=== PATIENT | male | born 1950 | race Caucasian/White ===

== ENCOUNTER 2020-02-27 10:08 | Inpatient (IN) | payer MEDICARE, OTHER ==
[2020-02-27] MEDS ORDERED: NALOXONE 0.4 MG/ML 1 ML VIAL IV PRN (10:37)
--- NOTE | 2020-02-27 10:37 | ED ---
General Adult HPI - General Chief complaint: Shortness of Breath Stated complaint: SOB, +Covid Time Seen by Provider: 02/27/20 10:09 Source: patient, RN/MD (Discussed with transferring physician), EMS, RN notes reviewed Mode of arrival: EMS Limitations: no limitations - History of Present Illness Initial comments: Patient is a pleasant 69-year-old male presenting to the emergency department as a transfer from [facility]. Patient was diagnosed: Positive. Patient has had cough and difficulty breathing. Oxygen saturation was 80% on nasal c annula and increased to 92% on nonrebreather. Patient did receive 30 mL/kg bolus. Patient was found to be dehydrated and hyponatremic. Patient was on the left that however that has been stopped at this time. Blood cultures and antibiotics were given. Patient states he has had cough fatigue and chills and myalgias as well as fevers. Cough is dry nonproductive. Patient does feel short of breath and does have history of COPD. Patient does have loss of taste and smell. Patient has occasional diarrhea. - Related Data Home Medications Medication Instructions Recorded Confirmed Albuterol Sulfate [Proair Hfa] 2 puff INHALATION RT-Q6H PRN 10/16/14 02/16/15 Arformoterol Tartrate [Brovana] 15 mcg INHALATION RT-BID 10/16/14 02/16/15 Digoxin [Lanoxin] 125 mcg PO DAILY 10/16/14 02/16/15 HYDROcodone/APAP 10-325MG [[place] 1 tab PO Q4HR PRN 10/16/14 02/16/15 10-325] INSULIN LISPRO (humaLOG) [humaLOG] 2 units SQ TID 10/16/14 02/16/15 Insulin Glargine [Lantus] 50 unit SQ HS 10/16/14 02/16/15 Ipratropium-Albuterol Nebulize 3 ml INHALATION RT-TID PRN 10/16/14 02/16/15 [Duoneb 0.5 mg-3 mg/3 ml Soln] Isosorbide Mononitrate ER [Imdur] 60 mg PO DAILY 10/16/14 02/16/15 Lansoprazole [Prevacid] 30 mg PO QAM 10/16/14 02/16/15 Methocarbamol [Robaxin-750] 750 mg PO Q6H PRN 10/16/14 02/16/15 Potassium Chloride ER [K-Dur 20] 20 meq PO DAILY 10/16/14 02/16/15 ALPRAZolam [Xanax] 0.5 mg PO BID PRN 10/17/14 02/16/15 Furosemide [Lasix] 40 mg PO QAM 10/17/14 02/16/15 Nebivolol HCl [Bystolic] 20 mg PO DAILY 10/17/14 02/16/15 Fluticasone Nasal [place] [Flonase 2 sprays EA NOSTRIL BID 02/16/15 02/17/15 Nasal [place]] Omeprazole [PriLOSEC] 20 mg PO HS 02/16/15 02/16/15 busPIRone HCL 30 mg PO BID 02/16/15 02/16/15 fentaNYL 75MCG/HR PATCH [Duragesic 1 patch TRANSDERM Q72H 02/16/15 02/17/15 75MCG/HR] Budesonide (Unknown Dose) 1 ampul INHALATION RT-BID 02/17/15 02/17/15 Previous Rx's Medication Instructions Recorded Levofloxacin [Levaquin] 500 mg PO DAILY #5 tab 02/18/15 SILVER sulfADIAZINE CREAM 1 applic TOPICAL DAILY 10 Days 02/18/15 [Silvadene Cream] gram Temazepam [Restoril] 15 mg PO HS PRN #20 cap 02/18/15 Allergies Allergy/AdvReac Type Severity Reaction Status Date / Time cephalexin monohydrate Allergy Unknown Verified 02/27/20 10:26 [From Keflex] hydroxyzine Allergy Unknown Verified 02/27/20 10:26 iodine Allergy Unknown Verified 02/27/20 10:26 metaproterenol [From Alupent] Allergy Unknown Verified 02/27/20 10:26 Penicillins Allergy Unknown Verified 02/27/20 10:26 sulfamethoxazole Allergy Unknown Verified 02/27/20 10:26 [From Bactrim] trimethoprim [From Bactrim] Allergy Unknown Verified 02/27/20 10:26 Review of Systems ROS Statement: Those systems with pertinent positive or pertinent negative responses have been documented in the HPI. ROS Other: All systems not noted in ROS Statement are negative. Constitutional: Reports: fever, chills Eyes: Denies: eye pain ENT: Denies: ear pain Respiratory: Reports: cough, dyspnea Cardiovascular: Denies: chest pain Endocrine: Reports: fatigue Gastrointestinal: Denies: abdominal pain Genitourinary: Denies: dysuria Musculoskeletal: Denies: back pain Skin: Denies: rash Neurological: Denies: weakness Past Medical History Past Medical History: Asthma, Coronary Artery Disease (CAD), Heart Failure, COPD, Diabetes Mellitus, Deep Vein Thrombosis (DVT), Hyperlipidemia, Hypertension, Myocardial Infarction (DE), Pneumonia, Pulmonary Embolus (PE) Additional Past Medical History / Comment(s): pvc; short term memory loss; insomnia Last Myocardial Infarction Date:: 1988 History of Any Multi-Drug Resistant Organisms: None Reported Past Surgical History: Adenoidectomy, Appendectomy, Cholecystectomy, Coronary Bypass/CABG, Heart Catheterization With Stent, Tonsillectomy Additional Past Surgical History / Comment(s): cabg 2007 Past Anesthesia/Blood Transfusion Reactions: No Reported Reaction Date of Last Stent Placement:: 2008 Past Psychological History: No Psychological Hx Reported Smoking Status: Never smoker Past Alcohol Use History: None Reported Past Drug Use History: None Reported - Past Family History Mother Additional Family Medical History / Comment(s): of mi at age 63. Father Family Medical History: Asthma, Congestive Heart Failure (CHF), COPD General Exam Limitations: no limitations General appearance: alert, in no apparent distress Head exam: Present: normocephalic Eye exam: Present: normal appearance Neck exam: Present: normal inspection Respiratory exam: Present: rhonchi Cardiovascular Exam: Present: regular rate, normal rhythm GI/Abdominal exam: Present: soft. Absent: tenderness Extremities exam: Present: normal inspection. Absent: pedal edema, calf tenderness Neurological exam: Present: alert Psychiatric exam: Present: normal affect, normal mood Skin exam: Present: normal color Course Vital Signs 02/27/20 02/27/20 10:13 10:24 Temperature 97.5 F L Pulse Rate 86 Respiratory 23 24 Rate Blood Pressure 110/76 O2 Sat by Pulse 90 L Oximetry - Reevaluation(s) Reevaluation #1: 02/27/20 10:45 Case was discussed with Dr. Flores. EKG Findings - EKG Comments: EKG Findings:: Sinus rhythm and 94. First 3 AV block SC of 208. QRS 140. QT 452. QTC 565. Left axis. Right bundle branch block. Inferior Q waves. Nonspecific ST-T. Medical Decision Making - Medical Decision Making Patient's O2 sat remains 92% on nonrebreather. Blood pressure has remained systolic 110 3 now Patient is aware of plan. Case was discussed with Dr. Parisi, who will admit covering for Dr. carlos Flores has been paged for consult Disposition Clinical Impression: COVID-19, Dehydration Disposition: ADMITTED IP TO THIS HOSP Condition: Serious Is patient prescribed a controlled substance at d/c from ED?: No Referrals: Fredy Loomis MD [Primary Care Provider] - 1-2 days Decision Time: 10:37
[2020-02-27] MEDS ORDERED: ENOXAPARIN 30 MG/0.3 ML SYRINGE SQ SCH (10:45)
[2020-02-27] MEDS: SODIUM CHLORIDE 0.9% 1,000 ML IV SCH (10:59)
[2020-02-27] MEDS ORDERED: LEVOFLOXACIN 750MG-D5W PMX 750 MG in DEXTROSE/WATER 1 150ML.BAG IVPB SCH (11:00)
[2020-02-27] MEDS: ZINC SULFATE 220 MG CAP PO SCH (11:54)
[2020-02-27] MEDS: ASCORBIC ACID 500 MG TAB PO SCH ×2 (11:54→21:28)
[2020-02-27] MEDS: CHOLECALCIFEROL 1,000 UNIT TAB PO SCH (11:55)
[2020-02-27 13:38] LABS: Anisocytosis Slight; Basophils # (A) 0.1 k/uL (0-0.2); Basophils % (A) 1 %; Eosinophils # (A) 0.1 k/uL (0-0.7); Eosinophils % (A) 1 %; HCT 35.3 % (39.0-53.0); Lymphocytes # (A) 0.6 k/uL (1.0-4.8); Lymphocytes % (A) 6 %; MCV 88.4 fL (80.0-100.0); Mean Platelet Volume 9.1; Monocytes # (A) 0.2 k/uL (0-1.0); Monocytes % (A) 2 %; Neutrophils # (A) 8.9 k/uL (1.3-7.7); Neutrophils % (A) 91 %; Platelet Count 101 k/uL (150-450); RDW 17.1 % (11.5-15.5); WBC 9.8 k/uL (3.8-10.6)
[2020-02-27] MEDS: HYDROcodone/APAP 10-325MG 1 EACH TAB PO PRN (13:42)
[2020-02-27] MEDS: GABAPENTIN 400 MG CAP PO SCH ×2 (13:42→21:27)
--- NOTE | 2020-02-27 14:05 | XR ---
EXAMINATION TYPE: XR chest 2V DATE OF EXAM: 02/27/2020 COMPARISON: Chest x-ray February 16, 2015. HISTORY: Cough, covid pneumonia suspected. TECHNIQUE: Frontal and lateral views of the chest are obtained. FINDINGS: The osseous structures remain intact. Overlying sternal wires and mediastinal clips redemo nstrated. Cardiac silhouette size stable and upper limits of normal. Low lung volumes and elevated ri ght hemidiaphragm redemonstrated. New diffuse left lung air space opacity with relative sparing of th e smaller volume right lung. IMPRESSION: New diffuse left lung acute edema and/or infiltrates.
[2020-02-27 14:26] LABS: C Reactive Protein 321.8 mg/L (<10.0)
[2020-02-27] MEDS ORDERED: NITROGLYCERIN SL TABS 0.4 MG TAB SUBLINGUAL PRN (15:00)
[2020-02-27] MEDS ORDERED: MAGNESIUM HYDROXIDE 2,400 MG/10 ML CUP PO PRN (15:00)
[2020-02-27] MEDS ORDERED: bisacodyL 5 MG TABLET.DR PO PRN (15:00)
--- NOTE | 2020-02-27 15:56 | CT ---
EXAMINATION TYPE: CT chest wo con DATE OF EXAM: 02/27/2020 COMPARISON: CT August 14, 2009. Chest x-ray earlier today. HISTORY: Shortness of breath. Cough. Covid Pneumonia suspected. CT DLP: 562.9 mGycm. Automated Exposure Control for Dose Reduction was Utilized. TECHNIQUE: CT scan of the thorax is performed without IV contrast. FINDINGS: LUNGS: Low lung volumes with elevated right hemidiaphragm redemonstrated. Diffuse groundglass opaciti es bilaterally greater on the left first right-sided correlate with same day x-ray. Trace bilateral p leural effusions noted. No pneumothorax bilaterally. MEDIASTINUM: Post-CABG changes with mediastinal clips and sternal wires. Lack of IV contrast is noted to limit evaluation for mediastinal and especially hilar adenopathy. There are no definitive greater than 1 cm mediastinal lymph nodes. No cardiomegaly or pericardial effusion is seen. OTHER: Liver redemonstrated low dense consistent with diffuse fatty infiltration. Surgical change to the lumbar spine noted on localizer. IMPRESSION: Findings correlate with same day x-ray and consistent with covid 19 infection.
--- NOTE | 2020-02-27 16:05 | HP ---
HISTORY AND PHYSICAL DATE OF SERVICE: 02/27/2020 CHIEF COMPLAINT: Shortness of breath and hypoxia. HISTORY OF PRESENT ILLNESS: This is a 69-year-old gentleman with a past medical history of multiple medical problems including asthma, CAD, CHF, COPD, diabetes type 2, DVT, hypertension, hypertension, myocardial function, pulmonary embolism, being followed by Dr. Fredy Way in the outpatient setting was resident in [facility]. The patient was having cough, sputum and also shortness of breath. Patient went to [facility] and patient was transferred to [facility] for further evaluation and treatment. The patient is COVID positive, the pulse ox is 80%, increased to 90% on non- rebreather. The patient is complaining of severe dry mouth at this time. The patient also had some IV fluids. There is no history of any rigors. No history of headache, loss of consciousness, seizures at this time. PAST MEDICAL HISTORY: Asthma, CHF, COPD, diabetes mellitus, DVT, hypertension, hypertension, myocardial infarction. MEDICATIONS: Prior home medications are: 1. Lasix 30 mg daily. 2. Zanaflex. 3. Glucophage. 4. Zestril. 5. Guaifenesin. 6. Buspirone. 7. Calculus. 8. Bisacodyl. 9. Zinc. 10.Vitamin B. 11.Sukhdev-24. 12.Flomax. 13.Senna. 14.Ranexa q.i.d. 15.Paxil. 16.Prilosec. 17.Nitrostat. 18.Multivitamins. 19.Singulair. 20.Lopressor. 21.Magnesium oxide. 22.Milk of magnesia. 23.Loratadine. 24.Imdur. 25.DuoNeb. 26.Levemir. 27.Neurontin. 28.Ellipta. 29.Flonase. 30.Vitamin D3. 31.Lipitor. 32.Pulmicort. 33.Vitamin C. 34.Zyloprim. 35.ProAir. 36.Tylenol. .. 37.Xanax. ALLERGIES: KEFLEX, HYDROXYZINE, IODINE, and PENICILLIN, BACTRIM. FAMILY HISTORY: History of asthma, CHF, COPD in the family. SOCIAL HISTORY: No history of smoking. No history of alcohol. REVIEW OF SYSTEMS: ENT: Diminished hearing, diminished vision. CARDIOVASCULAR: As mentioned earlier. RESPIRATION: As mentioned earlier. GI: No nausea. : No dysuria. NERVOUS SYSTEM: No numbness or weakness. ALLERGY/IMMUNOLOGY: No history of asthma or hayfever. MUSCULOSKELETAL: As mentioned earlier. HEMATOLOGY: No history of anemia. ENDOCRINE: As mentioned earlier. CONSTITUTIONAL: As mentioned earlier. DERMATOLOGY: Negative. PSYCHIATRY: As mentioned earlier. PHYSICAL EXAMINATION: Alert and oriented x3. Pulse 87, blood pressure 120/77, respiration 20, temperatuve is 97.2, pulse ox 92% on 10 L. HEENT: Conjunctivae normal. NECK: No jugular venous distension. CARDIOVASCULAR: S1, S2, muffled. RESPIRATORY SYSTEM: Breath sounds diminished at the bases, bilateral scattered rhonchi, no crackles. Expiratory wheezing also present. ABDOMEN: Soft, nontender. No mass palpable. LEGS: No edema, no swelling. NERVOUS SYSTEM: Higher functions as mentioned earlier. Moves all limbs. No focal motor or sensory lymph node enlargement. SKIN: No ulcers, rashes. JOINTS: No active deforming arthropathy. LABS: At this time show WBC 9.2, hemoglobin is 12, platelets 101. Other labs are noted. LDH is 764. CRP is 321.8. ASSESSMENT: 1. Acute COVID-19 infection as well as bilateral pneumonia with acute hypoxic respiratory failure and possible respiratory failure, present on admission. 2. Rule out congestive heart failure. 3. Elevated inflammatory markers of COVID including LDH and CRP. 4. Anemia. 5. Thrombocytopenia. 6. History of asthma. 7. History of coronary artery disease. 8. History of CHF, ejection fraction unknown. 9. History of chronic obstructive pulmonary disease. 10.Diabetes mellitus type 2. 11.History of deep vein thrombosis. 12.Hyperlipidemia. 13.Hypertension. 14.History of myocardial infarction. 15.History of pneumonia. 16.History of pulmonary embolism. 17.Previous history of short-term memory loss. 18.History of insomnia. 19.History of cholecystectomy. 20.History of CAD, CABG, stent. 21.History of tonsillectomy. 22.Obesity with body mass 30.8. RECOMMENDATION: In this 69-year-old gentleman who presented with multiple complex medical issues, will monitor the patient closely, continue with the current management. Will treat with bronchodilators. Will check a BNP. Monitor fluid/electrolyte balance closely and Lovenox. I would also recommend Infectious Disease evaluation and possible Remdesivir, also. Continue with nonbreather mask at this time. Pulmonary consultation per Dr. Zuleta. Prognosis guarded because of multiple complex medical issues. Further recommendations to follow. A copy of this will be forwarded to Dr. Way who is the primary physician. Will continue the rest of the conservative treatment of COVID-19 as well. Prognosis guarded. Further recommendations to follow. MMODL / IJN: [id number] / [email or web address]
[2020-02-27] MEDS: RANOLAZINE 500 MG TAB.ER.12H PO SCH (16:52)
[2020-02-27] MEDS ORDERED: REMDESIVIR 200 MG in SODIUM CHLORIDE 0.9% 250 ML IVPB ONE (17:00)
[2020-02-27] MEDS ORDERED: BUDESONIDE 0.5 MG/2 ML NEBU INHALATION SCH (17:00)
[2020-02-27] MEDS: allopurinoL 300 MG TAB PO SCH (18:29)
[2020-02-27] MEDS: busPIRone HCl 10 MG TAB PO SCH (18:29)
[2020-02-27] MEDS: ALBUTEROL HFA INHALER INHALATION PRN (20:15)
[2020-02-27] MEDS ORDERED: NON FORMULARY DRUG (Omeprazole [Prilosec] 20 MG Capsule.Dr) PO SCH (21:00)
[2020-02-27] MEDS ORDERED: IPRATROPIUM-ALBUTEROL 3 ML NEB INHALATION SCH (21:00)
[2020-02-27] MEDS: ATORVASTATIN 40 MG TAB PO SCH (21:27)
[2020-02-27] MEDS: ENOXAPARIN 40 MG/0.4 ML SYRINGE SQ SCH (21:27)
[2020-02-27 21:28] LABS: Glucose,Whole Blood 248 mg/dL (75-99)
[2020-02-27] MEDS: PARoxetine 10 MG TAB PO SCH (21:28)
[2020-02-27] MEDS: CLOPIDOGREL 75 MG TAB PO SCH (21:28)
[2020-02-27] MEDS: MAGNESIUM OXIDE 400 MG TAB PO SCH (21:28)
[2020-02-27] MEDS: SENNOSIDES-DOCUSATE SODIUM 1 EACH TAB PO SCH (21:28)
[2020-02-27] MEDS: INSULIN DETEMIR (LEVEMIR) 100 UNIT/ML SYR SQ SCH (21:28)
--- NOTE | 2020-02-27 21:58 | CONS ---
CONSULTATION PULMONARY/CRITICAL CARE CONSULTATION: DATE OF SERVICE: 02/27/2020 REASON FOR CONSULTATION: Shortness of breath and COVID-19 pneumonia. The patient was seen in the emergency room. This is a 69-year-old gentleman who apparently sees a doctor or nurse practitioner up in the [place] area. The patient was apparently diagnosed with COVID infection and transferred down from [facility]. The patient's complaints included cough and difficulty breathing. Apparently his saturations were only 80% on nasal cannula. The patient was placed on a non-rebreather. The patient also was hypotensive and received fluid boluses, and at one point he also was on some norepinephrine, but that has been weaned off. Currently the patient feels weak. He feels short of breath. He has chest congestion. He is coughing. He likely had some fever and chills as well. He also had muscle aches and joint aches. He has not been feeling well for a number of days. Currently the patient is on saline at 130 mL/hour. At home the patient uses oxygen at 3 L. The patient is a candidate for remdesivir. The patient is currently on a non- rebreather. It also appears that his chest x-ray and CT scan are consistent with COVID-19 pneumonitis, and in addition it appears that he has right diaphragm weakness or paralysis. HOME MEDICATIONS: His home medications are reviewed. He is on ProAir, Brovana, digoxin, [place], insulin, DuoNeb, Imdur, Prevacid, Robaxin, K-Dur, Xanax, Lasix, Bystolic, Flonase nasal spray, Prilosec, fentanyl patch, Pulmicort, Levaquin, silver sulfadiazine cream and Restoril. ALLERGIES: ALLERGIES include KEFLEX, HYDROXYZINE, IODINE, ALUPENT, PENICILLIN, SULFAMETHOXAZOLE and TRIMETHOPRIM. MEDICAL HISTORY: Medical history is reviewed. He apparently has a history of asthma. He sees my partner Dr. Zamudio for that. He also has a history of CAD, CHF, diabetes, DVT, hyperlipidemia, hypertension, myocardial infarction, pneumonia and pulmonary embolism. In addition, he has a history of short-term memory loss and insomnia. SURGICAL HISTORY: Surgical history includes adenoidectomy, appendectomy, cholecystectomy, bypass grafting in 2007, heart catheterization with stent, and tonsillectomy. SOCIAL HISTORY: Positive for lifelong nontobacco use, alcohol use or illicit drug use. Has not used any those products or drugs. FAMILY HISTORY: Positive for mother who at age 63 from an MD and father who has a history of asthma, heart failure and COPD. REVIEW OF SYSTEMS: CONSTITUTIONAL: Fever, chills, muscle aches, joint aches. NEUROLOGIC: Negative. HEENT: Negative. CARDIOVASCULAR: Negative. PULMONARY: Shortness of breath, chest congestion, cough, chest tightness without phlegm production. GI: Negative. : Negative. RHEUMATOLOGIC: Negative. IMMUNOLOGIC: Negative. ENDOCRINOLOGIC: Negative. DERMATOLOGIC: Negative. PHYSICAL EXAMINATION: VITAL SIGNS: Currently temperature is 98, heart rate 93, respiratory rate 22, blood pressure 121/60, mean 80. Saturations are 91% to 94% on a non-rebreather. GENERAL APPEARANCE: He appears mildly tachypneic. No conversational dyspnea or audible wheezing. No use of accessory muscles. HEENT: Examination is grossly unremarkable. Mask in place. NECK: Supple. Full range of motion. No adenopathy. Neck veins are flat. CARDIOVASCULAR: Examination reveals regular rhythm and rate. S1, S2 normal. Heart sounds are distant. LUNGS: Lung examination reveals diminished breath sounds throughout. There are coarse bilateral rhonchi. No wheezes or crackles. Breath sounds are equal but diminished. ABDOMEN: Obese. Bowel sounds are heard. EXTREMITIES: Intact. No cyanosis, clubbing or edema. SKIN: Without rash. NEUROLOGIC: Neurologic examination is brief but nonfocal. LABS/IMAGING: D-dimer is 0.28. LDH 764. C-reactive protein 321.8. White count 9.8, hemoglobin 12, hematocrit 35.3. Platelet count is 101,000. Microbiology is negative. Chest x-ray shows diffuse infiltrates, primarily in the left lung. CT scan shows small bilateral ground-glass opacities which seem to affect both lungs equally. In addition, he does have an elevated right hemidiaphragm. CURRENT MEDICATIONS: Current medications are reviewed. He is on Tylenol, albuterol inhaler, zyloprim, Xanax, vitamin C, aspirin, Lipitor, Dulcolax, Symbicort, BuSpar, D3, Plavix, Decadron, Lovenox, Flonase nasal spray, fenofibrate, Lasix, gabapentin, Robitussin syrup, [place], insulin, Levaquin, Zestril, loratadine, milk of magnesia, Mag-Ox, metoprolol, Singulair, multiple vitamins, Narcan, nitroglycerin tablets, Protonix, potassium, remdesivir, Senna, saline at 130 mL/hour, Flomax, theophylline, Spiriva, Zanaflex and zinc. ASSESSMENT: 1. COVID-19 pneumonitis/pneumonia, with moderate to severe hypoxemic respiratory failure. 2. History of chronic bronchial asthma, a bit more active at this time. 3. Coronary artery disease, status post bypass grafting in 2007. 4. Congestive heart failure. 5. Diabetes mellitus. 6. Deep venous thrombosis. 7. Hyperlipidemia. 8. Hypertension. 9. Myocardial infarction. 10.History of pneumonia. 11.History of pulmonary embolism. PLAN: The patient is on appropriate medications. Will continue to follow. Inflammatory markers will be ordered every couple of days. A repeat chest x-ray down the road. No additional recommendations are made. Hopefully the patient continues to respond to therapy. MMODL / IJN: [id number] /
[2020-02-28] MEDS: THEOPHYLLINE 24 HOUR 200 MG CAP.ER.24H PO SCH ×3 (00:03→21:51)
[2020-02-28] MEDS: SODIUM CHLORIDE 0.9% 1,000 ML IV SCH ×3 (00:05→09:35)
[2020-02-28] MEDS: ALPRAZolam 0.25 MG TAB PO PRN ×2 (02:50→09:31)
[2020-02-28 07:52] LABS: Glucose,Whole Blood 138 mg/dL (75-99)
[2020-02-28] MEDS: ALBUTEROL HFA INHALER INHALATION PRN ×4 (08:01→19:38)
[2020-02-28] MEDS: SYMBICORT 80-4.5 MCG INHALER INHALATION SCH ×2 (08:01→19:38)
[2020-02-28] MEDS: TIOTROPIUM 18 MCG/PUFF INHALER INHALATION SCH (08:16)
[2020-02-28] MEDS ORDERED: NON FORMULARY DRUG (Vitamin B Complex [Vitamin B Complex] 1 EACH Capsule) PO SCH (09:00)
[2020-02-28] MEDS ORDERED: DEXAMETHASONE SOD PHOSPHATE 10 MG/ML 1 ML VIAL IV SCH (09:00)
[2020-02-28] MEDS: allopurinoL 300 MG TAB PO SCH ×2 (09:30→17:12)
[2020-02-28] MEDS: CHOLECALCIFEROL 1,000 UNIT TAB PO SCH (09:30)
[2020-02-28] MEDS: METOPROLOL TARTRATE 25 MG TAB PO SCH (09:30)
[2020-02-28] MEDS: LORATADINE 10 MG TAB PO SCH (09:30)
[2020-02-28] MEDS: ASPIRIN 81 MG PO SCH (09:31)
[2020-02-28] MEDS: GABAPENTIN 400 MG CAP PO SCH ×3 (09:31→21:52)
[2020-02-28] MEDS: FENOFIBRATE 160 MG TAB PO SCH (09:31)
[2020-02-28] MEDS: ISOSORBIDE MONONITRATE ER 30 MG TAB.ER.24H PO SCH (09:31)
[2020-02-28] MEDS: MAGNESIUM OXIDE 400 MG TAB PO SCH ×2 (09:31→21:52)
[2020-02-28] MEDS: busPIRone HCl 10 MG TAB PO SCH ×2 (09:31→17:13)
[2020-02-28] MEDS: ASCORBIC ACID 500 MG TAB PO SCH ×2 (09:31→21:52)
[2020-02-28] MEDS: TAMSULOSIN 0.4 MG CAP.ER.24H PO SCH (09:31)
[2020-02-28] MEDS: RANOLAZINE 500 MG TAB.ER.12H PO SCH ×2 (09:31→17:12)
[2020-02-28] MEDS: tiZANidine 4 MG TAB PO SCH (09:31)
[2020-02-28] MEDS: ZINC SULFATE 220 MG CAP PO SCH (09:31)
[2020-02-28] MEDS: MULTIVITAMINS, THERA 1 EACH TAB PO SCH (09:31)
[2020-02-28] MEDS: lisinopriL 5 MG TAB PO SCH (09:32)
[2020-02-28] MEDS: MONTELUKAST 10 MG TAB PO SCH (09:32)
[2020-02-28] MEDS: POTASSIUM CHLORIDE ER 10 MEQ TAB.ER.PRT PO SCH (09:32)
[2020-02-28] MEDS: PANTOPRAZOLE 40 MG/10 ML VIAL IV SCH (09:32)
[2020-02-28] MEDS: ENOXAPARIN 40 MG/0.4 ML SYRINGE SQ SCH ×2 (09:33→21:52)
[2020-02-28] MEDS: INSULIN DETEMIR (LEVEMIR) 100 UNIT/ML SYR SQ SCH ×2 (09:33→21:53)
[2020-02-28] MEDS: FLUTICASONE 50MCG/SPRAY NASAL 16GM EA NOSTRIL SCH (09:33)
[2020-02-28] MEDS: FUROSEMIDE 10 MG TAB PO SCH (09:34)
[2020-02-28] MEDS: HYDROcodone/APAP 10-325MG 1 EACH TAB PO PRN ×2 (09:59→21:51)
[2020-02-28 11:09] LABS: Albumin 3.9 g/dL (3.5-5.0); Calcium 9.1 mg/dL (8.4-10.2); Total Bilirubin 0.8 mg/dL (0.2-1.3); Total Protein 7.1 g/dL (6.3-8.2)
[2020-02-28 11:11] LABS: Anisocytosis Slight; Basophils % (A) 0 %; Eosinophils % (A) 0 %; HCT 42.9 % (39.0-53.0); HGB 14.1 gm/dL (13.0-17.5); Lymphocytes % (A) 7 %; MCH 29.1 pg (25.0-35.0); MCHC 32.8 g/dL (31.0-37.0); MCV 88.6 fL (80.0-100.0); Mean Platelet Volume 8.6; Monocytes # (A) 0.6 k/uL (0-1.0); Monocytes % (A) 4 %; Neutrophils # (A) 12.9 k/uL (1.3-7.7); Neutrophils % (A) 88 %; RBC 4.84 m/uL (4.30-5.90); RDW 17.1 % (11.5-15.5); WBC 14.6 k/uL (3.8-10.6)
[2020-02-28 11:21] LABS: Potassium 4.5 mmol/L (3.5-5.1)
[2020-02-28 11:32] LABS: Platelet Count 153 k/uL (150-450)
[2020-02-28 11:52] LABS: Glucose,Whole Blood 282 mg/dL (75-99)
[2020-02-28] MEDS: methylPREDNISolone SOD SUCCI 125 MG/2 ML VIAL IV SCH ×3 (12:13→23:27)
[2020-02-28] MEDS: INSULIN ASPART (NovoLOG) 100 UNIT/ML VIAL SQ SCH ×3 (12:13→21:53)
--- NOTE | 2020-02-28 12:41 | CDI ---
Documentation Clarification Form Date: 02/28/2020 12:29:01 PM From: Radha Kim CCS, CCDS Admit Date: 02/27/2020 10:39:00 AM Patient Name: Colton Haque Visit Number: [id number] Discharge Date: ATTENTION: The Clinical Documentation Specialists (CDI) and [facility] Coding Staff appreciate your assistance in clarifying documentation. Please respond to the clarification below the line at the bottom and electronically sign. The CDI & [facility] Coding staff will review the response and follow-up if needed. Please note: Queries are made part of the Legal Health Record. If you have any questions, please contact the author of this message via ITS. Dr. Jasmine Parisi: This patient was transferred from [facility] with COVID 19 and pneumonia. Also in acute hypoxic respiratory failure. Per the 02/26 Pulmonary Consult: "The patient's complaints included cough and difficulty breathing. Apparently his saturations were only 80% on nasal cannula. The patient was placed on a non-rebreather. The patient also was hypotensive and received fluid boluses, and at one point he also was on some norepinephrine, but that has been weaned off." History/Risk Factors: CAD status post Stent & CABG post AL, CHF nos, Hypertension, DM II, DVT, Hyperlipidemia, Previous Pneumonia & PE. Clinical Indicators: Presented to the ED via EMS on 02/26 from [facility] with + COVID. SOB, dehydrated, hyponatremic, cough, fatigue, chills, myalgias, fever, diarrhea, loss of taste & smell. 02/26 VS: T 97.5*, P 86, R 24 (SOB), BP 110/76, PO 90 15% nrb. 02/27 VS: T 97.9, P 105^, R 28 (SOB, cough), BP 166/99, PO 90 15% nrb. LAB 02/26: WBC 9.8, RBC 4.00*, Hgb 12.0*, Hct 35.3*, Pl Ct 101*, Neut 8.9^, Lymph 0.6*, Lactate Dehydrogenase 764^, CRP 321.9^. LAB 02/27: WBC 14.6^, Neut 12.9^ RAD: 02/26 CXR: New diffuse left lung acute edema and/or infiltrates. 02/26 CT Chest: Consistent with COVID 19 infection. Treatment: po Orazinc, IV Levaquin, Vit D3 & Vit C, INH Ventolin, IV Remdesivir, Lovenox sq. In your professional opinion, please clarify if these findings signify one of the following conditions, whether the condition is POA, and cause, if known: Sepsis o Severe Sepsis Other, please specify Unable to determine Present on Admission: Yes or No Link or clarify if there is associated (due to/with): Organ failure (Last Revision: June 2017) none MTDD
--- NOTE | 2020-02-28 14:27 | P.PN ---
Subjective Progress Note Date: 02/28/20 Principal diagnosis: CoVID [id number] 69-year-old white male patient who came into the hospital on 02/27/2020 as a transfer from an [facility] after being diagnosed with covid19 infection, and having symptoms of shortness of breath, worsening hypoxemia. Patient has chronic hypoxic respiratory failure the patient normally wears 3 L of oxygen on a regular basis, however his saturations were only 80% on the nasal cannula, and subsequent patient was placed on non-rebreather. In addition patient was hypotensive, and received fluid boluses and was on a brief norepinephrine support, he is currently off the norepinephrine. He's been feeling pretty weak, has been having fever and chills, muscle aches and joint aches. Has not been feeling well for a number of days. His chest x-ray CT chest consistent with COVID 19 pneumonitis in addition with what appears to be a right hemidiaphragm weakness or paralysis. Patient was started on Remdesivir, high-dose IV steroids will be started today, he remains on aIRVO, currently at 50 L per minute, and FiO2 of 90% sat is 99%, hemodynamically has been stable, his been afebrile. Objective - Vital Signs Vital signs: Vital Signs Temp 98.7 F 02/28/20 12:10 Pulse 80 02/28/20 12:40 Resp 22 02/28/20 12:40 BP 92/54 02/28/20 14:08 Pulse Ox 99 02/28/20 12:40 Intake & Output 02/27/20 02/28/20 02/28/20 18:59 06:59 18:59 Intake Total 660 Output Total 4000 4800 1200 Balance -4000 -4800 -540 Weight 89.358 kg 92.5 kg Intake: Oral 660 Output: Urine 4000 4800 1200 Other: Voiding Method Indwelling Catheter Indwelling Catheter # Bowel Movements 2 - Exam GENERAL EXAM: Alert, pleasant, 61-year-old white male, on Airvo at 50 L, and FiO2 of 90%, with a pulse ox of 99% comfortable in no apparent distress. HEAD: Normocephalic/atraumatic. EYES: Normal reaction of pupils, equal size. Conjunctiva pink, sclera white. NOSE: Clear with pink turbinates. THROAT: No erythema or exudates. NECK: No masses, no JVD, no thyroid enlargement, no adenopathy. CHEST: No chest wall deformity. Symmetrical expansion. LUNGS: Equal air entry with no crackles, wheeze, rhonchi or dullness. CVS: Regular rate and rhythm, normal S1 and S2, no gallops, no murmurs, no rubs ABDOMEN: Soft, nontender. No hepatosplenomegaly, normal bowel sounds, no guarding or rigidity. EXTREMITIES: No clubbing, no edema, no cyanosis, 2+ pulses and upper and lower extremities. MUSCULOSKELETAL: Muscle strength and tone normal. SPINE: No scoliosis or deformity SKIN: No rashes CENTRAL NERVOUS SYSTEM: Alert and oriented -3. No focal deficits, tone is normal in all 4 extremities. PSYCHIATRIC: Alert and oriented -3. Appropriate affect. Intact judgment and insight. - Labs CBC & Chem 7: 02/28/20 09:56 02/28/20 09:56 Labs: Abnormal Lab Results - Last 24 Hours (Table) 02/27/20 02/27/20 02/28/20 Range/Units 13:26 21:27 07:46 WBC (3.8-10.6) k/uL RDW (11.5-15.5) % Neutrophils # (1.3-7.7) k/uL Carbon Dioxide (22-30) mmol/L BUN (9-20) mg/dL Glucose (74-99) mg/dL POC Glucose (mg/dL) 248 H 138 H (75-99) mg/dL AST (17-59) U/L C-Reactive Protein 321.8 H (<10.0) mg/L 02/28/20 02/28/20 02/28/20 Range/Units 09:56 09:56 11:51 WBC 14.6 H (3.8-10.6) k/uL RDW 17.1 H (11.5-15.5) % Neutrophils # 12.9 H (1.3-7.7) k/uL Carbon Dioxide 21 L (22-30) mmol/L BUN 34 H (9-20) mg/dL Glucose 132 H (74-99) mg/dL POC Glucose (mg/dL) 282 H (75-99) mg/dL AST 79 H (17-59) U/L C-Reactive Protein (<10.0) mg/L Assessment and Plan Plan: Assessment: #1. Acute coronary 19 pneumonitis/pneumonia with the moderate to severe hypoxemic respiratory failure, started on Remdesivir on 02/27/2020 #2. Chronic hypoxic respiratory failure related to history of COPD #3. Chronic CHF with diastolic dysfunction, moderate mitral regurgitation, and mild tricuspid regurgitation no evidence of pulmonary hypertension #4. Diabetes mellitus type 2 #5. Coronary artery disease, previous stenting and bypass surgery #6. History of deep vein thrombosis he #7. History of hyperlipidemia #8. Previous history of myocardial infarction #9. Previous history of pneumonia #10. History of chronic bronchial asthma, unspecified #11. 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 Code status is DO N OT INTUBATE DO NOT RESUSCITATE, we'll continue supportive treatment I performed a history & physical examination of the patient and discussed their management with my nurse practitioner, Maribeth Latif. I reviewed the nurse practitioner's note and agree with the documented findings and plan of care. Lung sounds are positive for diminished breath sounds throughout the lung aguirre. The findings and the impression was discussed with the patient. I attest to the documentation by the nurse practitioner. Time with Patient: Less than 30
--- NOTE | 2020-02-28 16:50 | PN ---
PROGRESS NOTE DATE OF SERVICE: 02/28/2020 This 69-year-old gentleman who was admitted with shortness of breath and hypoxia also had acute COVID-19 infection. The patient was also seen by Pulmonary. The patient has been started on remdesivir; this is day [address] Zuleta is following the patient closely. Infectious Disease also has been consulted. Past medical history reviewed. REVIEW OF SYSTEMS: CARDIOVASCULAR SYSTEM: As mentioned earlier. RESPIRATORY SYSTEM: As mentioned earlier. GI: As mentioned earlier. : No dysuria or retention. NERVOUS SYSTEM: No numbness, weakness. CURRENT MEDICATIONS: Reviewed. They include Tylenol, [place], Ventolin, zyloprim, Xanax, vitamin C, aspirin, Lipitor. Medication doses are reviewed. PHYSICAL EXAMINATION: Patient is alert and oriented x3. Pulse 80, blood pressure 103/60, respiration 22, temperature normal, pulse ox 99% on 50% FiO2. HEENT: Conjunctivae normal. NECK: No jugular venous distention. CARDIOVASCULAR SYSTEM: S1, S2 muffled. RESPIRATORY SYSTEM: Breath sounds diminished at the bases. Bilateral scattered rhonchi and crackles. ABDOMEN: Soft. NERVOUS SYSTEM: No focal deficit. LABS: WBC 14.6, sodium 138, potassium 4.5. ASSESSMENT: 1. Acute COVID-19 infection as well as bilateral pneumonia with possible acute hypoxic respiratory failure, present on admission. 2. On remdesivir. 3. Congestive heart failure ruled out. 4. Elevated inflammatory markers for COVID, including LDH and CRP. 5. Anemia. 6. Thrombocytopenia. 7. History of asthma. 8. History of coronary artery disease. 9. Congestive heart failure; ejection fraction unknown. 10.History of chronic obstructive pulmonary disease. 11.Diabetes mellitus, type 2. 12.History of deep venous thrombosis. 13.Hyperlipidemia. 14.Hypertension. 15.History of myocardial infarction. 16.History of pneumonia. 17.History of pulmonary embolism. 18.History of short-term memory loss. 19.History of insomnia. 20.History of cholecystectomy. 21.History of coronary artery disease, coronary artery bypass grafting, stents. 22.History of tonsillectomy. 23.Obesity with body mass index of 30.8. 24.NO CODE, NO CPR, NO VENT. RECOMMENDATIONS AND DISCUSSION: I recommend to continue current medications, continue with the monitoring, symptomatic treatment. Continue with the bronchodilators. Continue the steroids. Continue the remdesivir. Monitor the inflammatory markers. Monitor labs closely. Follow with Pulmonary. The chest x-ray was reviewed personally by me and showed bilateral extensive pneumonitic process, interstitial pneumonia, possibly classical COVID-19. Prognosis guarded. Further recommendations to follow. MMODL / PHILIPN: [id number] /
[2020-02-28 16:58] LABS: Glucose,Whole Blood 236 mg/dL (75-99)
[2020-02-28] MEDS: REMDESIVIR 100 MG in SODIUM CHLORIDE 0.9% 250 ML IVPB SCH (17:12)
[2020-02-28 21:09] LABS: Glucose,Whole Blood 248 mg/dL (75-99)
[2020-02-28] MEDS: SENNOSIDES-DOCUSATE SODIUM 1 EACH TAB PO SCH (21:51)
[2020-02-28] MEDS: ATORVASTATIN 40 MG TAB PO SCH (21:51)
[2020-02-28] MEDS: CLOPIDOGREL 75 MG TAB PO SCH (21:52)
--- NOTE | 2020-02-28 22:39 | P.CONS ---
History of Present Illness - Reason for Consult Consult date: 02/28/20 Covid 19 pneumonia Requesting physician: Jasmine Parisi - Chief Complaint Shortness of breath and cough x few days - History of Present Illness Patient is a 69-year-old male presenting to the ER at [facility] yesterday morning as a transfer from [facility] with the patient presented with cough difficulty in breathing and this patient symptom has been going on for about a week patient was noticed to be hypoxic with O2 sats of 80% and the patient also noticed to have a positive Covid test at that facility patient complaining of shortness of breath even at rest he also have a cough which is moderate intensity not bringing up any sputum, patient did have some lower rib cage pleuritic chest pain, some nausea but no vomiting no URI symptoms no abdominal pain no diarrhea with the symptom the patient was evaluated by the ER physician on arrival to the ER the patient has been afebrile patient has been on the high flow nasal cannula oxygen patient did have a white count 14.6 with a left shift BUN of 34 creatinine is 1.14 AST elevated 79 D- dimer was normal patient did have a chest x-ray new diffuse left lung acute edema or infiltrate CT of the chest did shows diffuse groundglass opacity bilaterally greater on the left patient was admitted to the hospital patient has been started on Lovenox Solu-Medrol remdesivir infectious was consulted nothing for further management patient admitted slight improvement comparing to presentation to the hospital Review of Systems Positive point has been mentioned in HPI rest of the systems are negative Past Medical History Past Medical History: Asthma, Coronary Artery Disease (CAD), Heart Failure, COPD, Diabetes Mellitus, Deep Vein Thrombosis (DVT), Hyperlipidemia, Hypertension, Myocardial Infarction ([place]), Pneumonia, Pulmonary Embolus (PE) Additional Past Medical History / Comment(s): pvc; short term memory loss; insomnia Last Myocardial Infarction Date:: 1988 History of Any Multi-Drug Resistant Organisms: None Reported Past Surgical History: Adenoidectomy, Appendectomy, Cholecystectomy, Coronary Bypass/CABG, Heart Catheterization With Stent, Tonsillectomy Additional Past Surgical History / Comment(s): cabg 2007 Past Anesthesia/Blood Transfusion Reactions: No Reported Reaction Date of Last Stent Placement:: 2008 Past Psychological History: No Psychological Hx Reported Smoking Status: Never smoker Past Alcohol Use History: None Reported Past Drug Use History: None Reported - Past Family History Mother Additional Family Medical History / Comment(s): of mi at age 63. Father Family Medical History: Asthma, Congestive Heart Failure (CHF), COPD Medications and Allergies Home Medications Medication Instructions Recorded Confirmed Type Albuterol Sulfate [Proair Hfa] 2 puff INHALATION RT-Q6H PRN 10/16/14 02/27/20 History HYDROcodone/APAP 10-325MG [[place] 1 tab PO QID@05,13,18,22 10/16/14 02/27/20 History 10-325] INSULIN LISPRO (humaLOG) [humaLOG] 10 units SQ TID@0700,1100,1600 10/16/14 02/27/20 History Ipratropium-Albuterol Nebulize 3 ml INHALATION BID@0900,2100 10/16/14 02/27/20 History [Duoneb 0.5 mg-3 mg/3 ml Soln] Fluticasone Nasal Iva [Flonase 1 sprays EA NOSTRIL DAILY@0900 02/16/15 02/27/20 History Nasal Iva] Omeprazole [PriLOSEC] 20 mg PO BID@0600,2100 02/16/15 02/27/20 History busPIRone HCL 30 mg PO BID@0900,1700 02/16/15 02/27/20 History ALPRAZolam [Xanax] 0.25 mg PO TID@0600,1300,209902/27/20 02/27/20 History Acetaminophen Tab [Tylenol Tab] 500 mg PO DAILY PRN 02/27/20 02/27/20 History Allopurinol [Zyloprim] 300 mg PO BID@0900,1700 02/27/20 02/27/20 History Ascorbic Acid [Vitamin C] 500 mg PO DAILY@1300 02/27/20 02/27/20 History Aspirin 81 mg PO DAILY@0900 02/27/20 02/27/20 History Atorvastatin [Lipitor] 40 mg PO HS@209902/27/20 02/27/20 History Budesonide [Pulmicort] 0.5 mg INHALATION RT-BID@0600,1700 02/27/20 02/27/20 History Cholecalciferol [Vitamin D3 (25 5,000 unit PO DAILY@129902/27/20 02/27/20 History Mcg = 1000 Iu)] Clopidogrel [Plavix] 75 mg PO HS@209902/27/20 02/27/20 History Fluticasone/Vilanterol [Breo 1 puff INHALATION RT-DAILY@89902/27/20 02/27/20 History Ellipta 100-25 Mcg Inhaler] Furosemide [Lasix] 30 mg PO DAILY@0902/27/20 02/27/20 History Gabapentin [Neurontin] 400 mg PO TID@0900,1300,209902/27/20 02/27/20 History Gemfibrozil [Lopid] 600 mg PO BID@0900,1700 02/27/20 02/27/20 History Insulin Detemir (Levemir) [Levemir] 35 unit SQ DAILY@0702/27/20 02/27/20 History Insulin Detemir (Levemir) [Levemir] 38 units SQ HS@209902/27/20 02/27/20 History Isosorbide Mononitrate ER [Imdur] 30 mg PO DAILY@89902/27/20 02/27/20 History Loratadine 10 mg PO DAILY@0902/27/20 02/27/20 History Magnesium Hydroxide [Milk of 2,400 mg PO Q48H PRN 02/27/20 02/27/20 History Magnesia] Magnesium Oxide [Mag-Ox] 400 mg PO BID@0900,209902/27/20 02/27/20 History Metoprolol Tartrate [Lopressor] 25 mg PO DAILY@89902/27/20 02/27/20 History Montelukast [Singulair] 10 mg PO DAILY@89902/27/20 02/27/20 History Multivitamins, Thera [Multivitamin 1 tab PO DAILY@89902/27/20 02/27/20 History (formulary)] Nitroglycerin Sl Tabs [Nitrostat] 0.4 mg SUBLINGUAL Q5M PRN 02/27/20 02/27/20 History PARoxetine HCL [Paxil] 30 mg PO HS@209902/27/20 02/27/20 History Potassium Chloride ER [K-Dur 10] 10 meq PO DAILY@0902/27/20 02/27/20 History Ranolazine [Ranexa] 500 mg PO BID@00,1700 02/27/20 02/27/20 History Sennosides/Docusate Sodium [Senna 1 cap PO HS@2100 02/27/20 02/27/20 History Plus 8.6-50 mg Softgel] Tamsulosin [Flomax] 0.4 mg PO DAILY@0900 02/27/20 02/27/20 History Theophylline 24 Hour [Sukhdev-24] 200 mg PO BID@0900,2100 02/27/20 02/27/20 History Vitamin B Complex 1 cap PO DAILY@0900 02/27/20 02/27/20 History Zinc 50 mg PO DAILY@1300 02/27/20 02/27/20 History bisacodyL [Bisacodyl] 10 mg RECTAL DAILY PRN 02/27/20 02/27/20 History bisacodyL [Dulcolax] 10 mg PO Q48H PRN 02/27/20 02/27/20 History guaiFENesin [guaiFENesin Oral 200 mg PO Q4H PRN 02/27/20 02/27/20 History Solution] lisinopriL [Zestril] 5 mg PO DAILY@0900 02/27/20 02/27/20 History metFORMIN HCL [Glucophage] 500 mg PO BID@0900,1700 02/27/20 02/27/20 History tiZANidine [Zanaflex] 2 mg PO DAILY@0900 02/27/20 02/27/20 History Allergies Allergy/AdvReac Type Severity Reaction Status Date / Time cephalexin monohydrate Allergy Unknown Verified 02/27/20 10:26 [From Keflex] hydroxyzine Allergy Unknown Verified 02/27/20 10:26 iodine Allergy Unknown Verified 02/27/20 10:26 metaproterenol [From Alupent] Allergy Unknown Verified 02/27/20 10:26 Penicillins Allergy Unknown Verified 02/27/20 10:26 sulfamethoxazole Allergy Unknown Verified 02/27/20 10:26 [From Bactrim] trimethoprim [From Bactrim] Allergy Unknown Verified 02/27/20 10:26 Physical Exam Vitals: Vital Signs Temp Pulse Pulse Resp BP BP Pulse Ox 02/28/20 16:00 97.7 F 77 23 107/59 98 02/28/20 14:58 78 22 98/57 94 L 02/28/20 14:08 92/54 02/28/20 12:40 80 22 103/60 99 02/28/20 12:31 92/56 02/28/20 12:30 93/54 02/28/20 12:17 89/53 02/28/20 12:15 70/48 02/28/20 12:11 76/49 02/28/20 12:10 98.7 F 80 22 79/51 93 L 02/28/20 08:00 98.1 F 102 H 22 141/83 94 L 02/28/20 03:21 98.2 F 103 H 22 150/65 96 02/28/20 00:00 97.9 F 110 H 26 H 168/74 95 02/27/20 23:14 105 H 28 H 166/99 90 L Intake and Output 02/28/20 02/28/20 02/28/20 06:59 14:59 22:59 Intake Total 780 360 Output Total 3000 1200 1500 Balance -3000 420 -1140 Intake: Oral 780 360 Output: Urine 3000 1200 1500 Other: Voiding Method Indwelling Catheter Indwelling Catheter # Bowel Movements 2 3 Weight 92.5 kg GENERAL DESCRIPTION: Elderly male lying in bed, no distress. No tachypnea or accessory muscle of respiration use. HEENT: Shows Pallor , no scleral icterus. Oral mucous membrane is dry. NECK: Trachea central, no thyromegaly. LUNGS: Unlabored breathing. Decreased breath in the bases. No wheeze or crackle. HEART: S1, S2, regular rate and rhythm. ABDOMEN: Soft, no tenderness , guarding or rigidity EXTREMITIES: No edema of feet. SKIN: No rash, no masses palpable. NEUROLOGICAL: The patient is awake, alert, oriented x3, mood and affect normal. Results CBC & Chem 7: 02/28/20 09:56 02/28/20 09:56 Labs: Abnormal Lab Results - Last 24 Hours (Table) 02/27/20 02/28/20 02/28/20 Range/Units 21:27 07:46 09:56 WBC (3.8-10.6) k/uL RDW (11.5-15.5) % Neutrophils # (1.3-7.7) k/uL Carbon Dioxide 21 L (22-30) mmol/L BUN 34 H (9-20) mg/dL Glucose 132 H (74-99) mg/dL POC Glucose (mg/dL) 248 H 138 H (75-99) mg/dL AST 79 H (17-59) U/L 02/28/20 02/28/20 02/28/20 Range/Units 09:56 11:51 16:57 WBC 14.6 H (3.8-10.6) k/uL RDW 17.1 H (11.5-15.5) % Neutrophils # 12.9 H (1.3-7.7) k/uL Carbon Dioxide (22-30) mmol/L BUN (9-20) mg/dL Glucose (74-99) mg/dL POC Glucose (mg/dL) 282 H 236 H (75-99) mg/dL AST (17-59) U/L Assessment and Plan Assessment: -patient presented to hospital with increasing shortness of breath and cough in this patient did have hypoxemia with evidence of diffuse infiltrate on the chest x-ray as well as CT likely secondary acute COVID-19 had pneumonia (1) COVID-19 Current Visit: Yes Status: Acute Code(s): U07.1 - COVID-19 SNOMED Code(s): 372393775 Plan: 1-patient will be continued on remdesivir 200 mg day 1 followed by 100 milligrams daily x4 more doses 6-[id number]-Uokqdj 60 mg every 6 hours along with Lovenox and zinc sulfate 3-droplet isolation and respiratory support 4-we will also obtain urine for Legionella antigen sputum culture and a procalcitonin level We will follow on clinical condition and cultures to further adjust medication if needed Thank you for this consultation we will follow the patient along with you Time with Patient: Greater than 30
[2020-02-28] MEDS: PARoxetine 10 MG TAB PO SCH (23:27)
[2020-02-29] MEDS: ALBUTEROL HFA INHALER INHALATION PRN ×3 (03:52→20:21)
[2020-02-29 06:48] LABS: Glucose,Whole Blood 146 mg/dL (75-99)
[2020-02-29] MEDS: INSULIN ASPART (NovoLOG) 100 UNIT/ML VIAL SQ SCH ×4 (07:10→20:37)
[2020-02-29] MEDS: INSULIN DETEMIR (LEVEMIR) 100 UNIT/ML SYR SQ SCH ×2 (07:10→20:37)
[2020-02-29] MEDS: methylPREDNISolone SOD SUCCI 125 MG/2 ML VIAL IV SCH ×4 (07:11→22:57)
[2020-02-29 08:04] LABS: Anisocytosis Slight; Basophils % (A) 0 %; Eosinophils % (A) 0 %; HCT 39.1 % (39.0-53.0); HGB 12.9 gm/dL (13.0-17.5); Lymphocytes # (A) 0.9 k/uL (1.0-4.8); Lymphocytes % (A) 10 %; MCH 29.4 pg (25.0-35.0); MCHC 33.1 g/dL (31.0-37.0); MCV 88.7 fL (80.0-100.0); Mean Platelet Volume 8.4; Monocytes # (A) 0.2 k/uL (0-1.0); Monocytes % (A) 3 %; Neutrophils # (A) 7.6 k/uL (1.3-7.7); Neutrophils % (A) 86 %; Platelet Count 156 k/uL (150-450); RBC 4.41 m/uL (4.30-5.90); RDW 17.2 % (11.5-15.5); WBC 8.8 k/uL (3.8-10.6)
[2020-02-29 08:18] LABS: Calcium 8.7 mg/dL (8.4-10.2); Potassium 4.2 mmol/L (3.5-5.1)
[2020-02-29] MEDS: ASCORBIC ACID 500 MG TAB PO SCH ×2 (08:34→20:35)
[2020-02-29] MEDS: CHOLECALCIFEROL 1,000 UNIT TAB PO SCH (08:34)
[2020-02-29] MEDS: allopurinoL 300 MG TAB PO SCH ×2 (08:34→17:29)
[2020-02-29] MEDS: FENOFIBRATE 160 MG TAB PO SCH (08:35)
[2020-02-29] MEDS: ZINC SULFATE 220 MG CAP PO SCH (08:35)
[2020-02-29] MEDS: MULTIVITAMINS, THERA 1 EACH TAB PO SCH (08:35)
[2020-02-29] MEDS: ISOSORBIDE MONONITRATE ER 30 MG TAB.ER.24H PO SCH (08:35)
[2020-02-29] MEDS: MAGNESIUM OXIDE 400 MG TAB PO SCH ×2 (08:35→20:35)
[2020-02-29] MEDS: MONTELUKAST 10 MG TAB PO SCH (08:35)
[2020-02-29] MEDS: LORATADINE 10 MG TAB PO SCH (08:35)
[2020-02-29] MEDS: lisinopriL 5 MG TAB PO SCH (08:35)
[2020-02-29] MEDS: POTASSIUM CHLORIDE ER 10 MEQ TAB.ER.PRT PO SCH (08:35)
[2020-02-29] MEDS: busPIRone HCl 10 MG TAB PO SCH ×2 (08:35→17:29)
[2020-02-29] MEDS: GABAPENTIN 400 MG CAP PO SCH ×3 (08:35→22:57)
[2020-02-29] MEDS: RANOLAZINE 500 MG TAB.ER.12H PO SCH ×2 (08:35→17:29)
[2020-02-29] MEDS: METOPROLOL TARTRATE 25 MG TAB PO SCH (08:35)
[2020-02-29] MEDS: tiZANidine 4 MG TAB PO SCH (08:36)
[2020-02-29] MEDS: ASPIRIN 81 MG PO SCH (08:36)
[2020-02-29] MEDS: PANTOPRAZOLE 40 MG/10 ML VIAL IV SCH (08:40)
[2020-02-29] MEDS: ENOXAPARIN 40 MG/0.4 ML SYRINGE SQ SCH ×2 (08:40→20:37)
[2020-02-29] MEDS: FUROSEMIDE 10 MG TAB PO SCH (08:40)
[2020-02-29] MEDS: TAMSULOSIN 0.4 MG CAP.ER.24H PO SCH (08:41)
[2020-02-29] MEDS: THEOPHYLLINE 24 HOUR 200 MG CAP.ER.24H PO SCH ×2 (08:41→20:35)
[2020-02-29] MEDS: TIOTROPIUM 18 MCG/PUFF INHALER INHALATION SCH (09:10)
[2020-02-29] MEDS: SYMBICORT 80-4.5 MCG INHALER INHALATION SCH ×2 (09:10→20:19)
[2020-02-29] MEDS: FLUTICASONE 50MCG/SPRAY NASAL 16GM EA NOSTRIL SCH (10:45)
[2020-02-29 11:56] LABS: Glucose,Whole Blood 235 mg/dL (75-99)
[2020-02-29] MEDS: HYDROcodone/APAP 10-325MG 1 EACH TAB PO PRN ×2 (13:31→22:57)
--- NOTE | 2020-02-29 14:26 | PN ---
PROGRESS NOTE This is a 69-year-old gentleman that we saw initially in the emergency room. We saw him on February 26. He came down from [place]. He was diagnosis as having COVID-19 pneumonia. The patient currently is complaining of worsening shortness of breath. He has cough. He has chest congestion. It hurts when he takes a deep breath. The patient initially was hypotensive. He received fluids and norepinephrine. That had been weaned off in the emergency department. Currently, he is a NO CODE patient. The patient was started on Remdesivir, high-dose steroids, and the usual medications including vitamin C, vitamin D3, and zinc. PHYSICAL EXAMINATION: VITAL SIGNS: Current vital signs include temperature 97.6, heart rate 72. Respiratory rate 22, blood pressure 122/64, mean 83 and saturations in the low 90s on AIRVO at 50 L/minute and FiO2 of 90%. GENERAL: He appears mildly tachypneic and dyspneic. Seems uncomfortable. HEENT: Examination is grossly unremarkable. AIRVO cannula noted. NECK: Supple. Full range of motion. No adenopathy. Neck veins are flat. CARDIOVASCULAR: Examination reveals regular rhythm and rate. Heart rate 72. S1, S2 normal. No S3, S4, or murmur. LUNGS: Reveal coarse rhonchi. Breath sounds are diminished. There are some crackles at the bases. No wheezes. ABDOMEN: Soft, but obese. EXTREMITIES are intact. No edema. SKIN is without rash. NEUROLOGIC: Examination is nonfocal. LABS: Reviewed. White count 8.8, hemoglobin 12.9, hematocrit 39.1, platelet count 156,000. Sodium 136, potassium 4.2. Chloride 104. CO2 24. Anion gap is 8. BUN and creatinine were 39 and 1.02. Microbiology is currently pending or negative. No recent chest x-rays. CURRENT MEDICATIONS: Reviewed. He is on Tylenol, albuterol inhaler, Zyloprim, Xanax, vitamin C, aspirin, Lipitor, Dulcolax, Symbicort, BuSpar, vitamin D3, Plavix, Lovenox, Lofibra, Flonase nasal spray, Lasix, gabapentin, Robitussin syrup, [place] insulin, Imdur, lisinopril, loratadine, milk of magnesia, Mag-Ox, Solu-Medrol, Lopressor, Singulair, Theragran, vitamins, Narcan, Nitro-Bid, Nitrostat, Protonix Paxil, K-Dur, Ranexa, Remdesivir, senna, Flomax, Restoril, theophylline, Spiriva, Zanaflex and zinc. ASSESSMENT: 1. Acute hypoxemic respiratory failure secondary to COVID-19 pneumonitis/pneumonia, currently on Remdesivir and AIRVO. 2. Chronic hypoxemic respiratory failure. 3. History of underlying chronic obstructive pulmonary disease. 4. Chronic congestive heart failure with diastolic dysfunction, and valvular heart disease in the form of moderate mitral regurgitation, and mild tricuspid regurgitation without evidence of pulmonary hypertension. 5. Type 2 diabetes mellitus. 6. Coronary artery disease, previous stenting and bypass surgery. 7. History of deep venous thrombosis. 8. History of hyperlipidemia. 9. Prior history of myocardial infarction. 10.History of pneumonia. 11.History of chronic bronchial asthma. 12.Elevated right hemidiaphragm, rule out diaphragm paralysis or weakness. PLAN: The patient continues on appropriate medications. He appears maybe not to be getting better. We will continue to watch him closely. He is on AIRVO at 90% FiO2. We will continue to follow. The patient does not want to be intubated or mechanically ventilated. He made that very clear. We will continue to do everything short of that. MMODL / IJN: [id number] /
[2020-02-29] MEDS: REMDESIVIR 100 MG in SODIUM CHLORIDE 0.9% 250 ML IVPB SCH (15:48)
[2020-02-29 16:52] LABS: Glucose,Whole Blood 212 mg/dL (75-99)
[2020-02-29] MEDS ORDERED: MENTHOL (NICE) LOZENGE MUCOUS MEM PRN (16:59)
[2020-02-29] MEDS: NYSTATIN 100,000 UNIT/ML SUSP 500,000 UNIT/5 ML CUP PO SCH ×2 (17:40→22:57)
[2020-02-29] MEDS: guaiFENesin SYRUP 100MG/5ML 200 MG/10 ML CUP PO PRN (17:44)
[2020-02-29 20:13] LABS: Glucose,Whole Blood 208 mg/dL (75-99)
[2020-02-29] MEDS: ATORVASTATIN 40 MG TAB PO SCH (20:35)
[2020-02-29] MEDS: SENNOSIDES-DOCUSATE SODIUM 1 EACH TAB PO SCH (20:35)
[2020-02-29] MEDS: CLOPIDOGREL 75 MG TAB PO SCH (20:36)
[2020-02-29] MEDS: PARoxetine 10 MG TAB PO SCH (20:36)
[2020-02-29] MEDS: ACETAMINOPHEN TAB 500 MG TAB PO PRN (20:37)
[2020-02-29] MEDS: TEMAZEPAM 15 MG CAP PO PRN (22:57)
--- NOTE | 2020-02-29 23:11 | PN ---
PROGRESS NOTE DATE OF SERVICE: 02/29/2020 REASON FOR FOLLOWUP: Acute COVID-19 pneumonia. INTERVAL HISTORY: Patient is currently afebrile, has been complaining of more shortness of breath and requiring high-flow nasal cannula oxygen. The patient denies any chest pain. Did have a cough. Not bringing up any sputum. No abdominal pain or diarrhea. PHYSICAL EXAMINATION: Blood pressure 120/55, pulse of 69, temperature 98.3. She is 93% on 15 L nasal cannula. She is 93% on 50% FIO2. Currently description is an elderly male lying in bed in no distress. Respiratory system: Unlabored breathing. Coarse breath sounds bilaterally. No wheeze. Heart S1, S2. Regular rate. ABDOMEN: Soft, no tenderness. LABS: Hemoglobin is 12.1, white count 8.9, BUN of 39, creatinine 1.02. DIAGNOSTIC IMPRESSION AND PLAN: Patient with acute COVID-19 pneumonia in this patient currently requiring high-flow nasal cannula oxygen for respiratory support is covered with Lovenox, Solu-Medrol and [place]; to continue and monitor clinical course closely. MMODL / IJN: [id number] /
[2020-03-01] MEDS: guaiFENesin SYRUP 100MG/5ML 200 MG/10 ML CUP PO PRN (04:17)
[2020-03-01 06:14] LABS: Glucose,Whole Blood 86 mg/dL (75-99)
[2020-03-01] MEDS: INSULIN ASPART (NovoLOG) 100 UNIT/ML VIAL SQ SCH ×4 (06:25→21:40)
[2020-03-01] MEDS: methylPREDNISolone SOD SUCCI 125 MG/2 ML VIAL IV SCH ×4 (07:05→23:05)
[2020-03-01] MEDS: HYDROcodone/APAP 10-325MG 1 EACH TAB PO PRN ×3 (07:06→21:41)
[2020-03-01] MEDS: INSULIN DETEMIR (LEVEMIR) 100 UNIT/ML SYR SQ SCH ×2 (07:06→21:40)
[2020-03-01] MEDS: ASPIRIN 81 MG PO SCH (08:46)
[2020-03-01] MEDS: ENOXAPARIN 40 MG/0.4 ML SYRINGE SQ SCH ×2 (08:46→21:40)
[2020-03-01] MEDS: TAMSULOSIN 0.4 MG CAP.ER.24H PO SCH (08:46)
[2020-03-01] MEDS: ZINC SULFATE 220 MG CAP PO SCH (08:46)
[2020-03-01] MEDS: CHOLECALCIFEROL 1,000 UNIT TAB PO SCH (08:46)
[2020-03-01] MEDS: allopurinoL 300 MG TAB PO SCH ×2 (08:46→16:57)
[2020-03-01] MEDS: MULTIVITAMINS, THERA 1 EACH TAB PO SCH (08:47)
[2020-03-01] MEDS: ISOSORBIDE MONONITRATE ER 30 MG TAB.ER.24H PO SCH (08:47)
[2020-03-01] MEDS: GABAPENTIN 400 MG CAP PO SCH ×3 (08:47→21:39)
[2020-03-01] MEDS: ASCORBIC ACID 500 MG TAB PO SCH ×2 (08:47→21:41)
[2020-03-01] MEDS: PANTOPRAZOLE 40 MG/10 ML VIAL IV SCH (08:47)
[2020-03-01] MEDS: TIOTROPIUM 18 MCG/PUFF INHALER INHALATION SCH (08:47)
[2020-03-01] MEDS: MAGNESIUM OXIDE 400 MG TAB PO SCH ×2 (08:47→21:41)
[2020-03-01] MEDS: MONTELUKAST 10 MG TAB PO SCH (08:47)
[2020-03-01] MEDS: METOPROLOL TARTRATE 25 MG TAB PO SCH (08:47)
[2020-03-01] MEDS: SYMBICORT 80-4.5 MCG INHALER INHALATION SCH ×2 (08:47→20:45)
[2020-03-01] MEDS: ALBUTEROL HFA INHALER INHALATION PRN ×2 (08:47→20:45)
[2020-03-01] MEDS: LORATADINE 10 MG TAB PO SCH (08:47)
[2020-03-01] MEDS: POTASSIUM CHLORIDE ER 10 MEQ TAB.ER.PRT PO SCH (08:47)
[2020-03-01] MEDS: RANOLAZINE 500 MG TAB.ER.12H PO SCH ×2 (08:47→16:57)
[2020-03-01] MEDS: tiZANidine 4 MG TAB PO SCH (08:48)
[2020-03-01] MEDS: FENOFIBRATE 160 MG TAB PO SCH (08:48)
[2020-03-01] MEDS: THEOPHYLLINE 24 HOUR 200 MG CAP.ER.24H PO SCH ×2 (08:48→21:41)
[2020-03-01] MEDS: NYSTATIN 100,000 UNIT/ML SUSP 500,000 UNIT/5 ML CUP PO SCH ×4 (08:49→21:40)
[2020-03-01] MEDS: FUROSEMIDE 10 MG TAB PO SCH (08:49)
[2020-03-01] MEDS: lisinopriL 5 MG TAB PO SCH (08:50)
[2020-03-01] MEDS: FLUTICASONE 50MCG/SPRAY NASAL 16GM EA NOSTRIL SCH (09:00)
[2020-03-01] MEDS: busPIRone HCl 10 MG TAB PO SCH ×2 (09:05→16:57)
[2020-03-01 09:07] LABS: Anisocytosis Slight; Basophils % (A) 0 %; Eosinophils % (A) 0 %; HCT 41.8 % (39.0-53.0); HGB 13.2 gm/dL (13.0-17.5); Lymphocytes # (A) 0.9 k/uL (1.0-4.8); Lymphocytes % (A) 9 %; MCH 28.2 pg (25.0-35.0); MCHC 31.6 g/dL (31.0-37.0); MCV 89.2 fL (80.0-100.0); Mean Platelet Volume 8.3; Monocytes # (A) 0.4 k/uL (0-1.0); Monocytes % (A) 4 %; Neutrophils # (A) 9.1 k/uL (1.3-7.7); Neutrophils % (A) 87 %; Platelet Count 172 k/uL (150-450); RBC 4.69 m/uL (4.30-5.90); RDW 17.6 % (11.5-15.5); WBC 10.5 k/uL (3.8-10.6)
--- NOTE | 2020-03-01 09:23 | XR ---
EXAMINATION TYPE: XR chest 1V portable DATE OF EXAM: 03/01/2020 Comparison: 02/27/2020 Clinical History: 69-year-old male COVID Findings: Very limited exam due to the low lung volumes. Marked elevation right hemidiaphragm mid chest level. Median sternotomy wires. Left CVC no longer visualized. Patient is rotated towards the right further limiting assessment. Heart size overall is normal. Mild diffuse interstitial groundglass is suggested . Impression: Similar diffuse bilateral groundglass infiltrate. Marked asymmetric elevation right hemidiaphragm. Co nsider underlying hemidiaphragmatic paralysis.
[2020-03-01 09:30] LABS: African American GFR (CKD) >90 (>60 ml/min/1.73 sqM); Anion Gap 8 mmol/L; Blood Urea Nitrogen 38 mg/dL (9-20); Calcium 8.9 mg/dL (8.4-10.2); Carbon Dioxide 24 mmol/L (22-30); Chloride 105 mmol/L (98-107); Glucose 121 mg/dL (74-99); Non-African American GFR(CKD) 87 (>60 ml/min/1.73 sqM); Potassium 4.2 mmol/L (3.5-5.1); Sodium 137 mmol/L (137-145)
[2020-03-01 11:35] LABS: Glucose,Whole Blood 177 mg/dL (75-99)
[2020-03-01] MEDS: ACETAMINOPHEN TAB 500 MG TAB PO PRN (11:37)
[2020-03-01] MEDS: ALPRAZolam 0.25 MG TAB PO PRN (11:37)
--- NOTE | 2020-03-01 15:42 | PN ---
PROGRESS NOTE PULMONARY/CRITICAL CARE PROGRESS NOTE: DATE OF SERVICE: March 01, 2020 69-year-old gentleman that we initially saw in the emergency room. He came in to the hospital on February 26, actually being transferred from [place]. He was diagnosed as having COVID-19 pneumonia. The patient complains of really not feeling much better. Not getting much worse he states. He has got shortness of breath, cough, chest congestion, and pain when he takes a deep breath. He denies any nausea, vomiting or diarrhea. No fever or chills. Initially, he received fluids in the emergency room and also required norepinephrine. Those were weaned off obviously before he came to the floor. The patient is a NO CODE. He was started on Remdesivir, high dose corticosteroids, and usual medications including vitamin C, vitamin D3, and zinc. PHYSICAL EXAMINATION: VITAL SIGNS: Current vital signs are reviewed. Temperature is 98.3. Heart rate 85, respiratory rate 22, blood pressure 122/56 mean 78, saturations are in the low to mid 90s on AIRVO at 50 L/minute and 90% FiO2. GENERAL: Appears mildly tachypneic and dyspneic. AIRVO cannula noted. HEENT: Examination is grossly unremarkable. NECK: Supple. Full range of motion. No adenopathy. Neck veins are flat. CARDIOVASCULAR: Examination reveals regular rhythm and rate. Heart rate 85 beats per minute. S1, S2 normal. Heart sounds are distant. LUNGS: Reveal diffuse coarse rhonchi. Breath sounds are equal. ABDOMEN: Obese. Bowel sounds are heard. EXTREMITIES are intact. No edema. SKIN: Without rash. NEUROLOGIC: Examination is nonfocal. LABS: Reviewed. White count 10.5, hemoglobin 13.2, hematocrit 41.8, platelet count 172,000. Sodium 137, potassium 4.2, chloride 105, CO2 24, anion gap is 8. BUN and creatinine were 38 and 0.9. Microbiology is currently negative. The most recent chest x-ray dated March 01 shows diffuse bilateral ground-glass infiltrates. There is also elevation of the right hemidiaphragm. Chest x-ray certainly no better. CURRENT MEDICATIONS: Reviewed. The patient is on Tylenol, albuterol inhaler, Zyloprim, Xanax, vitamin C, aspirin, Lipitor, Dulcolax, Symbicort, BuSpar, vitamin D3, Plavix, Lofibra, Lovenox, Flonase nasal spray, Lasix, gabapentin, Robitussin, [place], NovoLog insulin, Levemir insulin, Imdur, Zestril, loratadine, milk of magnesia, Mag-Ox, Nice cough drops, Solu- Medrol, metoprolol, Singulair, multivitamins, Narcan, nitroglycerin, Mycostatin oral suspension, Protonix, Paxil, potassium chloride, Ranexa, Remdesivir, Senokot, Flomax, Restoril, theophylline, Tiotropium, Zanaflex and zinc. ASSESSMENT: 1. Acute hypoxemic respiratory failure secondary to COVID-19 pneumonia/pneumonitis, currently on Remdesivir and AIRVO, not much improved. 2. Chronic hypoxemic respiratory failure secondary to underlying chronic obstructive pulmonary disease. 3. Chronic congestive heart failure with diastolic dysfunction and valvular heart disease in the form of moderate mitral regurgitation, mild tricuspid regurgitation, without evidence of pulmonary hypertension. 4. Type 2 diabetes mellitus. 5. Coronary artery disease, with previous stenting and bypass surgery. 6. History of deep vein thrombosis. 7. History of hyperlipidemia. 8. Prior history of myocardial infarction. 9. History of pneumonia. 10.History of chronic bronchial asthma. 11.Elevated right hemidiaphragm. PLAN: The patient is on appropriate medications. I am very concerned because the patient really has not shown much improvement. The patient is 69. He has multiple medical problems as noted above. He is on Remdesivir. Currently on AIRVO at 90%. The patient continues to be quite short of breath. We will continue to follow. Prognosis is guarded. No additional recommendations are made. He is a NO CODE. MMODL / IJN: [id number] /
[2020-03-01] MEDS: REMDESIVIR 100 MG in SODIUM CHLORIDE 0.9% 250 ML IVPB SCH (16:53)
[2020-03-01 17:11] LABS: Glucose,Whole Blood 217 mg/dL (75-99)
[2020-03-01 20:24] LABS: Glucose,Whole Blood 289 mg/dL (75-99)
--- NOTE | 2020-03-01 21:00 | PN ---
PROGRESS NOTE DATE OF SERVICE: 03/01/2020 REASON FOR FOLLOWUP: COVID-19 pneumonia. INTERVAL HISTORY: Patient is currently afebrile. The patient is requiring high-flow nasal cannula oxygen. Denies having any chest pain. Some shortness of breath. Minimal cough. No nausea, vomiting, abdominal pain or diarrhea. PHYSICAL EXAMINATION: Blood pressure 145/69, pulse of 78, temperature 97.9. He is 90% on 15 L high-flow oxygen. General description is an elderly male lying in bed in no distress. Respiratory system: Unlabored breathing with decreased intensity of breath sounds. Heart S1, S2. Regular rate and rhythm. Abdomen soft, no tenderness. LABS: Hemoglobin 13.1, white count 10.5, BUN of 30, creatinine 0.90. DIAGNOSTIC IMPRESSION AND PLAN: Patient with acute COVID-19 pneumonia. Patient is currently on Lovenox, Solu-Medrol, Remdesivir and zinc sulfate along with respiratory support to continue and monitor clinical course closely. MMODL / IJN: [id number] /
[2020-03-01] MEDS ORDERED: INSULIN ASPART (NovoLOG) 100 UNIT/ML VIAL SQ ONE (21:19)
[2020-03-01] MEDS: CLOPIDOGREL 75 MG TAB PO SCH (21:39)
[2020-03-01] MEDS: TEMAZEPAM 15 MG CAP PO PRN (21:39)
[2020-03-01] MEDS: ATORVASTATIN 40 MG TAB PO SCH (21:40)
[2020-03-01] MEDS: SENNOSIDES-DOCUSATE SODIUM 1 EACH TAB PO SCH (21:41)
[2020-03-01] MEDS: PARoxetine 10 MG TAB PO SCH (21:41)
--- NOTE | 2020-03-01 23:55 | P.PN ---
Subjective Progress Note Date: 02/29/20 Patient is a 69-year-old male was admitted to hospital due to shortness of breath and hypoxia and also acute COVID-19 infection. Patient was started on remdesivir. ID and pulmonary is following. Patient was initially hypotensive and was given fluids and also was Levophed which was weaned off in the ER.. 02/29/2020 Patient is currently lying in the bed comfortably. Was started on remdesivir and high-dose steroids. Currently on vitamin supplementation as well. On airvo at 50 L and FiO2 90%. Laboratory data showed WBC 8.8, hemoglobin 12.9 and platelets 156 Sodium 136, potassium 4.1 BUN 39 creatinine 1.02 Procalcitonin level is 0.19 blood sugars in 200s. Current medications reviewed. Objective - Vital Signs Vital signs: Vital Signs Temp 97.1 F L 02/29/20 16:00 Pulse 61 02/29/20 16:00 Resp 20 02/29/20 16:00 BP 105/51 02/29/20 16:00 Pulse Ox 94 L 02/29/20 16:00 Intake & Output 02/28/20 02/29/20 02/29/20 18:59 06:59 18:59 Intake Total 1140 236 Output Total 1950 2350 1000 Balance -810 -2350 -764 Weight 92 kg Intake: Oral 1140 236 Output: Urine 1950 2350 1000 Other: Voiding Method Indwelling Catheter Indwelling Catheter Indwelling Catheter # Bowel Movements 3 - Exam PHYSICAL EXAMINATION: Patient is lying in the bed comfortably, no acute distress, awake alert and oriented.. HEENT: Normocephalic. Neck is supple. Pupils reactive. Nostrils clear. Oral cavity is moist. Ears reveal no drainage. Neck reveals no JVD, carotid bruits, or thyromegaly. CHEST EXAMINATION: Trachea is central. Symmetrical expansion. Diffuse coarse breath sounds. Nonlabored breathing.. CARDIAC: Normal S1, S2 with no gallops. No murmurs ABDOMEN: Soft. Bowel sounds normal. No organomegaly. No abdominal bruits. Extremities: reveal no edema. No clubbing or cyanosis Neurologically awake, alert, oriented x3 with well-coordinated movements. No focal deficits noted Skin: No rash or skin lesions. Psychiatric: Coperative. Nonsuicidal Musculoskeletal: No joint swelling or deformity. Normal range of motion. - Labs CBC & Chem 7: 03/01/20 08:28 03/01/20 08:28 Labs: Abnormal Lab Results - Last 24 Hours (Table) 02/28/20 02/29/20 02/29/20 Range/Units 21:02 06:36 07:20 Hgb 12.9 L (13.0-17.5) gm/dL RDW 17.2 H (11.5-15.5) % Lymphocytes # 0.9 L (1.0-4.8) k/uL Sodium (137-145) mmol/L BUN (9-20) mg/dL Glucose (74-99) mg/dL POC Glucose (mg/dL) 248 H 146 H (75-99) mg/dL Procalcitonin (0.02-0.09) ng/mL 02/29/20 02/29/20 02/29/20 Range/Units 07:20 07:20 11:54 Hgb (13.0-17.5) gm/dL RDW (11.5-15.5) % Lymphocytes # (1.0-4.8) k/uL Sodium 136 L (137-145) mmol/L BUN 39 H (9-20) mg/dL Glucose 132 H (74-99) mg/dL POC Glucose (mg/dL) 235 H (75-99) mg/dL Procalcitonin 0.19 H (0.02-0.09) ng/mL 02/29/20 Range/Units 16:49 Hgb (13.0-17.5) gm/dL RDW (11.5-15.5) % Lymphocytes # (1.0-4.8) k/uL Sodium (137-145) mmol/L BUN (9-20) mg/dL Glucose (74-99) mg/dL POC Glucose (mg/dL) 212 H (75-99) mg/dL Procalcitonin (0.02-0.09) ng/mL Assessment and Plan Assessment: Acute COVID-19 infection with bilateral pneumonia and acute hypoxic respiratory failure present on admission currently being continued on remdesivir. Elevated inflammatory markers secondary to COVID-19 pneumonia Asthma stable History of CAD Chronic CHF ejection fraction unknown at this time COPD Diabetes type 2 History of DVT Hypertension Hyperlipidemia History of [place] History of PE History of short-term memory loss Current CODE STATUS is DNR/DNI Plan: Patient will continue current management and plan and continue with bronchodilators. Currently steroids and monitor inflammatory markers. Continue with remdesivir and follow-up closely. ID and pulmonary is on board. Further recommendations based on clinical course. Prognosis is guarded at this time. Time with Patient: Greater than 30
--- NOTE | 2020-03-02 | P.PN ---
Subjective Progress Note Date: 03/01/20 Principal diagnosis: Acute hypoxic respite failure secondary to COVID-19 pneumonia Patient is a 69-year-old male was admitted to hospital due to shortness of breath and hypoxia and also acute COVID-19 infection. Patient was started on remdesivir. ID and pulmonary is following. Patient was initially hypotensive and was given fluids and also was Levophed which was weaned off in the ER.. 02/29/2020 Patient is currently lying in the bed comfortably. Was started on remdesivir and high-dose steroids. Currently on vitamin supplementation as well. On airvo at 50 L and FiO2 90%. Laboratory data showed WBC 8.8, hemoglobin 12.9 and platelets 156 Sodium 136, potassium 4.1 BUN 39 creatinine 1.02 Procalcitonin level is 0.19 blood sugars in 200s. 03/01/2020 Patient is currently resting in bed comfortably. On high flow oxygen at 15 L and 90% FiO2. Chest x-ray showed similar diffuse bilateral groundglass infiltrate. Marked asymmetric elevation right hemidiaphragm. Consider underlying hemidiaphragmatic paralysis. However as patient is being continued on remdesivir and steroids and vitamin supplementation. Pulmonary and ID is on board. Patient presents Improving slowly compared to yesterday. Current medications reviewed. Objective - Vital Signs Vital signs: Vital Signs Temp 97.9 F 03/01/20 15:01 Pulse 76 03/01/20 15:01 Resp 22 03/01/20 15:01 BP 145/69 03/01/20 15:01 Pulse Ox 90 L 03/01/20 15:01 Intake & Output 02/29/20 03/01/20 03/01/20 18:59 06:59 18:59 Intake Total 1046 120 746 Output Total 1700 1700 1200 Balance -931 -8076 -687 Weight 89.5 kg Intake: IV 160 80 saline KVO 160 80 Intake, IV Titration 250 Amount Remdesivir 100 mg In 250 Sodium Chloride 0.9% 250 ml @ 250 mls/hr IVPB DAILY@1700 [facility] Rx#: [id number] Oral 636 120 666 Output: Urine 1700 1700 1200 Other: Voiding Method Indwelling Catheter Indwelling Catheter Indwelling Catheter - Exam PHYSICAL EXAMINATION: Patient is lying in the bed comfortably, no acute distress, awake alert and oriented.. HEENT: Normocephalic. Neck is supple. Pupils reactive. Nostrils clear. Oral cavity is moist. Ears reveal no drainage. Neck reveals no JVD, carotid bruits, or thyromegaly. CHEST EXAMINATION: Trachea is central. Symmetrical expansion. Diffuse coarse breath sounds. Nonlabored breathing.. CARDIAC: Normal S1, S2 with no gallops. No murmurs ABDOMEN: Soft. Bowel sounds normal. No organomegaly. No abdominal bruits. Extremities: reveal no edema. No clubbing or cyanosis Neurologically awake, alert, oriented x3 with well-coordinated movements. No focal deficits noted Skin: No rash or skin lesions. Psychiatric: Coperative. Nonsuicidal Musculoskeletal: No joint swelling or deformity. Normal range of motion. - Labs CBC & Chem 7: 03/01/20 08:28 03/01/20 08:28 Labs: Abnormal Lab Results - Last 24 Hours (Table) 02/29/20 03/01/20 03/01/20 Range/Units 20:12 08:28 08:28 RDW 17.6 H (11.5-15.5) % Neutrophils # 9.1 H (1.3-7.7) k/uL Lymphocytes # 0.9 L (1.0-4.8) k/uL BUN 38 H (9-20) mg/dL Glucose 121 H (74-99) mg/dL POC Glucose (mg/dL) 208 H (75-99) mg/dL 03/01/20 03/01/20 Range/Units 11:33 16:56 RDW (11.5-15.5) % Neutrophils # (1.3-7.7) k/uL Lymphocytes # (1.0-4.8) k/uL BUN (9-20) mg/dL Glucose (74-99) mg/dL POC Glucose (mg/dL) 177 H 217 H (75-99) mg/dL Assessment and Plan Assessment: Acute COVID-19 infection with bilateral pneumonia and acute hypoxic respiratory failure present on admission currently being continued on remdesivir. Elevated inflammatory markers secondary to COVID-19 pneumonia Asthma stable History of CAD Chronic CHF ejection fraction unknown at this time COPD Diabetes type 2 History of DVT Hypertension Hyperlipidemia History of [place] History of PE History of short-term memory loss Current CODE STATUS is DNR/DNI Plan: Patient will continue current management and plan and continue with bronchodilators. Currently steroids and monitor inflammatory markers. Continue with remdesivir and follow-up closely. ID and pulmonary is on board. Further recommendations based on clinical course. Prognosis is guarded at this time. Time with Patient: Greater than 30
[2020-03-02] MEDS: guaiFENesin SYRUP 100MG/5ML 200 MG/10 ML CUP PO PRN (05:00)
[2020-03-02] MEDS: HYDROcodone/APAP 10-325MG 1 EACH TAB PO PRN ×3 (05:00→17:51)
[2020-03-02] MEDS: methylPREDNISolone SOD SUCCI 125 MG/2 ML VIAL IV SCH (05:01)
[2020-03-02] MEDS: ALBUTEROL HFA INHALER INHALATION PRN ×4 (05:10→21:01)
[2020-03-02 06:21] LABS: Glucose,Whole Blood 203 mg/dL (75-99)
[2020-03-02] MEDS: INSULIN ASPART (NovoLOG) 100 UNIT/ML VIAL SQ SCH ×4 (06:42→21:48)
[2020-03-02] MEDS: INSULIN DETEMIR (LEVEMIR) 100 UNIT/ML SYR SQ SCH ×2 (06:42→21:48)
[2020-03-02] MEDS: SYMBICORT 80-4.5 MCG INHALER INHALATION SCH ×2 (07:07→21:01)
[2020-03-02] MEDS: TIOTROPIUM 18 MCG/PUFF INHALER INHALATION SCH (07:07)
--- NOTE | 2020-03-02 09:10 | P.PN ---
Subjective Progress Note Date: 03/02/20 69 year old male patient who was hospitalized on 02/27/2020 as a transfer from [facility] because of acute pneumonia attributed to coronavirus Covid 19 infection. The patient was complaining of shortness of breath and cough and congestion no nausea or vomiting or diarrhea. No reported fever or chills. The patient initially required fluids and also reports some pressors and she was started on a combination of steroids and Remdesivir. The patient was on high flow 02, Airvo, and the patient subsequently was weaned off and patient is currently on 15 L per minute nasal cannula and the pulses ox is on the order of 90%. The patient is also on Lovenox 40 mg subcu every 12 hours. The patient on Levemir insulin 38 units at bedtime and 35 units in the morning in addition to sinus. Coverage. Home medication. We will order. Chest x-ray from yesterday shows similar. Bilateral ground glass. There is also marked elevation of the right hemidiaphragm, likely due to component of diaphragmatic paralysis.the patient was subsequently placed back on high flow oxygen at 50 L with a FiO2 of 90% to bring up his saturation.he is feeling essentially the same as yesterday. He is still struggling with his breathing. He has a congested cough. Objective - Vital Signs Vital signs: Vital Signs Temp 97.6 F 03/02/20 04:00 Pulse 92 03/02/20 04:00 Resp 22 03/02/20 04:00 BP 163/71 03/02/20 04:00 Pulse Ox 94 L 03/02/20 04:00 Intake & Output 03/01/20 03/02/20 03/02/20 18:59 06:59 18:59 Intake Total 968 540 90 Output Total 1800 1400 Balance -832 -860 90 Weight 85 kg Intake: IV 80 saline KVO 80 Oral 888 540 90 Output: Urine 1800 1400 Other: Voiding Method Indwelling Catheter Indwelling Catheter - Exam GENERAL EXAM: Alert, pleasant, 61-year-old white male, on 50 L/min with a pulse ox of 90% comfortable in no apparent distress. HEAD: Normocephalic/atraumatic. EYES: Normal reaction of pupils, equal size. Conjunctiva pink, sclera white. NOSE: Clear with pink turbinates. THROAT: No erythema or exudates. NECK: No masses, no JVD, no thyroid enlargement, no adenopathy. CHEST: No chest wall deformity. Symmetrical expansion. LUNGS: Equal air entry with no crackles, wheeze, rhonchi or dullness.diminished breath on the right lung bases the patient has chronic right hemidiaphragmatic paralysis. CVS: Regular rate and rhythm, normal S1 and S2, no gallops, no murmurs, no rubs ABDOMEN: Soft, nontender. No hepatosplenomegaly, normal bowel sounds, no guarding or rigidity. EXTREMITIES: No clubbing, no edema, no cyanosis, 2+ pulses and upper and lower extremities. MUSCULOSKELETAL: Muscle strength and tone normal. SPINE: No scoliosis or deformity SKIN: No rashes CENTRAL NERVOUS SYSTEM: Alert and oriented -3. No focal deficits, tone is normal in all 4 extremities. PSYCHIATRIC: Alert and oriented -3. Appropriate affect. Intact judgment and insight. - Labs CBC & Chem 7: 03/01/20 08:28 03/01/20 08:28 Labs: Abnormal Lab Results - Last 24 Hours (Table) 03/01/20 03/01/20 03/01/20 Range/Units 08:28 08:28 11:33 RDW 17.6 H (11.5-15.5) % Neutrophils # 9.1 H (1.3-7.7) k/uL Lymphocytes # 0.9 L (1.0-4.8) k/uL BUN 38 H (9-20) mg/dL Glucose 121 H (74-99) mg/dL POC Glucose (mg/dL) 177 H (75-99) mg/dL 03/01/20 03/01/20 03/02/20 Range/Units 16:56 20:22 06:20 RDW (11.5-15.5) % Neutrophils # (1.3-7.7) k/uL Lymphocytes # (1.0-4.8) k/uL BUN (9-20) mg/dL Glucose (74-99) mg/dL POC Glucose (mg/dL) 217 H 289 H 203 H (75-99) mg/dL Assessment and Plan Plan: #1. Acute COVID 19 pneumonitis/pneumonia with the moderate to severe hypoxemic respiratory failure, started on Remdesivir on 02/27/2020 and on steroidsmild currently on high flow oxygen at 50 L per minute #2. Chronic hypoxic respiratory failure related to history of COPD, maintained on 2.5 L of oxygen outpatient basis and the patient has chronic right hemidiaphragmatic paralysis. #3. Chronic CHF with diastolic dysfunction, moderate mitral regurgitation, and mild tricuspid regurgitation no evidence of pulmonary hypertension #4. Diabetes mellitus type 2 #5. Coronary artery disease, previous stenting and bypass surgery #6. History of deep vein thrombosis #7. History of hyperlipidemia #8. Previous history of myocardial infarction #9. Previous history of pneumonia #10. History of chronic bronchial asthma, unspecified #11. Elevated right hemidiaphragm with possibility of right diaphragmatic paralysis Plan Continue Remdesivir, high-dose IV steroids, continue the vitamins and supp lements, continue anticoagulation form of Lovenox 40 mg subcu every 12 hours, continue to monitor oxygenation pattern, dyspnea pattern, vital signs. Code status is DO NOT INTUBATE DO NOT RESUSCITATE, we'll continue supportive treatment. The patient is currently on O2 at 50 litersand will continue follow- up his progress.ccontinue the Solu-Medrol and put the patient IV Decadron 6 mg per recovery study
[2020-03-02] MEDS: ASCORBIC ACID 500 MG TAB PO SCH ×2 (10:36→21:47)
[2020-03-02] MEDS: allopurinoL 300 MG TAB PO SCH ×2 (10:36→17:50)
[2020-03-02] MEDS: ASPIRIN 81 MG PO SCH (10:36)
[2020-03-02] MEDS: CHOLECALCIFEROL 1,000 UNIT TAB PO SCH (10:37)
[2020-03-02] MEDS: busPIRone HCl 10 MG TAB PO SCH ×2 (10:37→17:50)
[2020-03-02] MEDS: ENOXAPARIN 40 MG/0.4 ML SYRINGE SQ SCH ×2 (10:38→21:48)
[2020-03-02] MEDS: FUROSEMIDE 10 MG TAB PO SCH (10:39)
[2020-03-02] MEDS: FENOFIBRATE 160 MG TAB PO SCH (10:39)
[2020-03-02] MEDS: GABAPENTIN 400 MG CAP PO SCH ×3 (10:40→21:48)
[2020-03-02] MEDS: ISOSORBIDE MONONITRATE ER 30 MG TAB.ER.24H PO SCH (10:41)
[2020-03-02] MEDS: lisinopriL 5 MG TAB PO SCH (10:41)
[2020-03-02] MEDS: MAGNESIUM OXIDE 400 MG TAB PO SCH ×2 (10:42→21:48)
[2020-03-02] MEDS: LORATADINE 10 MG TAB PO SCH (10:42)
[2020-03-02] MEDS: METOPROLOL TARTRATE 25 MG TAB PO SCH (10:42)
[2020-03-02] MEDS: MONTELUKAST 10 MG TAB PO SCH (10:43)
[2020-03-02] MEDS: PANTOPRAZOLE 40 MG/10 ML VIAL IV SCH (10:43)
[2020-03-02] MEDS: MULTIVITAMINS, THERA 1 EACH TAB PO SCH (10:43)
[2020-03-02] MEDS: NYSTATIN 100,000 UNIT/ML SUSP 500,000 UNIT/5 ML CUP PO SCH ×4 (10:43→21:47)
[2020-03-02] MEDS: TAMSULOSIN 0.4 MG CAP.ER.24H PO SCH (10:44)
[2020-03-02] MEDS: POTASSIUM CHLORIDE ER 10 MEQ TAB.ER.PRT PO SCH (10:44)
[2020-03-02] MEDS: RANOLAZINE 500 MG TAB.ER.12H PO SCH ×2 (10:44→17:50)
[2020-03-02] MEDS: tiZANidine 4 MG TAB PO SCH (10:44)
[2020-03-02] MEDS: ZINC SULFATE 220 MG CAP PO SCH (10:46)
[2020-03-02] MEDS: DEXAMETHASONE SOD PHOSPHATE 10 MG/ML 1 ML VIAL IV SCH (10:46)
[2020-03-02] MEDS: THEOPHYLLINE 24 HOUR 200 MG CAP.ER.24H PO SCH ×2 (10:49→21:47)
[2020-03-02] MEDS: FLUTICASONE 50MCG/SPRAY NASAL 16GM EA NOSTRIL SCH (10:49)
[2020-03-02 12:15] LABS: Glucose,Whole Blood 212 mg/dL (75-99)
[2020-03-02] MEDS: ALPRAZolam 0.25 MG TAB PO PRN (14:35)
--- NOTE | 2020-03-02 15:04 | P.PN ---
Subjective Acute hypoxic respite failure secondary to COVID-19 pneumonia Patient is a 69-year-old male was admitted to hospital due to shortness of breath and hypoxia and also acute COVID-19 infection. Patient was started on remdesivir. ID and pulmonary is following. Patient was initially hypotensive and was given fluids and also was Levophed which was weaned off in the ER.. 02/29/2020 Patient is currently lying in the bed comfortably. Was started on remdesivir and high-dose steroids. Currently on vitamin supplementation as well. On airvo at 50 L and FiO2 90%. Laboratory data showed WBC 8.8, hemoglobin 12.9 and platelets 156 Sodium 136, potassium 4.1 BUN 39 creatinine 1.02 Procalcitonin level is 0.19 blood sugars in 200s. 03/01/2020 Patient is currently resting in bed comfortably. On high flow oxygen at 15 L and 90% FiO2. Chest x-ray showed similar diffuse bilateral groundglass infiltrate. Marked asymmetric elevation right hemidiaphragm. Consider underlying hemidiaphragmatic paralysis. However as patient is being continued on remdesivir and steroids and vitamin supplementation. Pulmonary and ID is on board. Patient presents Im proving slowly compared to yesterday. 03/02/2020 Patient still remains on the high amount of oxygen still remains on remdesivir patient is presently on 50 L of oxygen via airvo Constitutional: Denied any fatigue denied any fever. Cardio vascular: denied any chest pain, palpitations Gastrointestinal denied any nausea vomiting Pulmonary: Denied any shortness of breath cough Neurologic denied any new focal deficits All inpatient medications were reviewed and appropriate changes in these medications as dictated in the interval history and assessment and plan. Objective - Vital Signs Vital signs: Vital Signs Temp 97.6 F 03/02/20 04:00 Pulse 92 03/02/20 04:00 Resp 22 03/02/20 04:00 BP 163/71 03/02/20 04:00 Pulse Ox 94 L 03/02/20 04:00 Intake & Output 03/01/20 03/02/20 03/02/20 18:59 06:59 18:59 Intake Total 968 540 210 Output Total 1800 1400 Balance -832 -860 210 Weight 85 kg Intake: IV 80 saline KVO 80 Oral 888 540 210 Output: Urine 1800 1400 Other: Voiding Method Indwelling Catheter Indwelling Catheter # Voids 0 - Exam PHYSICAL EXAMINATION: GENERAL: The patient is alert and oriented x3, not in any acute distress. Well developed, well nourished. HEENT: Pupils are round and equally reacting to light. EOMI. No scleral icterus. No conjunctival pallor. Normocephalic, atraumatic. No pharyngeal erythema. No thyromegaly. CARDIOVASCULAR: S1 and S2 present. No murmurs, rubs, or gallops. PULMONARY: Diffuse bilateral rhonchi ABDOMEN: Soft, nontender, nondistended, normoactive bowel sounds. No palpable organomegaly. MUSCULOSKELETAL: No joint swelling or deformity. EXTREMITIES: No cyanosis, clubbing, or pedal edema. NEUROLOGICAL: Gross neurological examination did not reveal any focal deficits. SKIN: No rashes. - Labs CBC & Chem 7: 03/01/20 08:28 03/01/20 08:28 Labs: Abnormal Lab Results - Last 24 Hours (Table) 03/01/20 03/01/20 03/02/20 Range/Units 16:56 20:22 06:20 POC Glucose (mg/dL) 217 H 289 H 203 H (75-99) mg/dL 03/02/20 Range/Units 11:43 POC Glucose (mg/dL) 212 H (75-99) mg/dL Assessment and Plan Plan: Acute COVID-19 infection with bilateral pneumonia and acute hypoxic respiratory failure present on admission currently being continued on remdesivir. Elevated inflammatory markers secondary to COVID-19 pneumonia Asthma stable History of CAD Chronic CHF with a diastolic dysfunction without any acute exacerbation at this time COPD and chronic hypoxic respiratory failure secondary to COPD Diabetes type 2 History of DVT Hypertension Hyperlipidemia Urinary artery disease History of PE Current CODE STATUS is DNR/DNI
[2020-03-02 17:27] LABS: Glucose,Whole Blood 215 mg/dL (75-99)
[2020-03-02] MEDS: REMDESIVIR 100 MG in SODIUM CHLORIDE 0.9% 250 ML IVPB SCH (17:52)
[2020-03-02 20:18] LABS: Glucose,Whole Blood 220 mg/dL (75-99)
[2020-03-02] MEDS: TEMAZEPAM 15 MG CAP PO PRN (21:47)
[2020-03-02] MEDS: PARoxetine 10 MG TAB PO SCH (21:47)
[2020-03-02] MEDS: ATORVASTATIN 40 MG TAB PO SCH (21:48)
[2020-03-02] MEDS: CLOPIDOGREL 75 MG TAB PO SCH (21:48)
[2020-03-02] MEDS: SENNOSIDES-DOCUSATE SODIUM 1 EACH TAB PO SCH (21:48)
--- NOTE | 2020-03-02 23:00 | PN ---
PROGRESS NOTE DATE OF SERVICE: 03/02/2020 REASON FOR FOLLOWUP: COVID-19 pneumonia. INTERVAL HISTORY: The patient is currently afebrile. He mentioned he may be slightly better today. Still requiring high-flow oxygen to maintain his saturation. Denies having any chest pain. Minimal cough. No nausea. No vomiting. No abdominal pain or diarrhea. PHYSICAL EXAMINATION: Blood pressure 116/59, pulse of 88, temperature 98.4. He is 94% on 50% FiO2. General description is an elderly male lying in bed in no distress. RESPIRATORY SYSTEM: Unlabored breathing. Coarse breath sounds bilaterally. No wheeze. HEART: S1, S2. Regular rate and rhythm. ABDOMEN: Soft. No tenderness. LABS: No new labs have been obtained today. DIAGNOSTIC IMPRESSION AND PLAN: Patient with acute COVID-19 infection. Patient is currently on dexamethasone, zinc and has completed his 5-day course of remdesivir; to continue and we will monitor his clinical course closely. Continue with supportive care. MMODL / IJN: [id number] /
[2020-03-03] MEDS: HYDROcodone/APAP 10-325MG 1 EACH TAB PO PRN ×3 (00:04→12:21)
[2020-03-03] MEDS: ALPRAZolam 0.25 MG TAB PO PRN (03:54)
[2020-03-03] MEDS: ACETAMINOPHEN TAB 500 MG TAB PO PRN ×2 (03:56→10:32)
[2020-03-03 06:03] LABS: Glucose,Whole Blood 81 mg/dL (75-99)
[2020-03-03] MEDS: INSULIN ASPART (NovoLOG) 100 UNIT/ML VIAL SQ SCH ×2 (06:38→12:19)
[2020-03-03] MEDS: INSULIN DETEMIR (LEVEMIR) 100 UNIT/ML SYR SQ SCH (06:38)
[2020-03-03] MEDS ORDERED: PANTOPRAZOLE 40 MG TABLET PO SCH (07:30)
[2020-03-03] MEDS: ALBUTEROL HFA INHALER INHALATION PRN ×2 (07:40→11:02)
[2020-03-03] MEDS: TIOTROPIUM 18 MCG/PUFF INHALER INHALATION SCH (07:40)
[2020-03-03] MEDS: SYMBICORT 80-4.5 MCG INHALER INHALATION SCH (07:41)
[2020-03-03] MEDS: busPIRone HCl 10 MG TAB PO SCH (09:33)
[2020-03-03] MEDS: MONTELUKAST 10 MG TAB PO SCH (09:33)
[2020-03-03] MEDS: RANOLAZINE 500 MG TAB.ER.12H PO SCH (09:34)
[2020-03-03] MEDS: allopurinoL 300 MG TAB PO SCH (09:34)
[2020-03-03] MEDS: MAGNESIUM OXIDE 400 MG TAB PO SCH (09:34)
[2020-03-03] MEDS: tiZANidine 4 MG TAB PO SCH (09:34)
[2020-03-03] MEDS: ZINC SULFATE 220 MG CAP PO SCH (09:35)
[2020-03-03] MEDS: DEXAMETHASONE SOD PHOSPHATE 10 MG/ML 1 ML VIAL IV SCH (09:35)
[2020-03-03] MEDS: lisinopriL 5 MG TAB PO SCH (09:35)
[2020-03-03] MEDS: MULTIVITAMINS, THERA 1 EACH TAB PO SCH (09:35)
[2020-03-03] MEDS: POTASSIUM CHLORIDE ER 10 MEQ TAB.ER.PRT PO SCH (09:35)
[2020-03-03] MEDS: CHOLECALCIFEROL 1,000 UNIT TAB PO SCH (09:35)
[2020-03-03] MEDS: TAMSULOSIN 0.4 MG CAP.ER.24H PO SCH (09:35)
[2020-03-03] MEDS: GABAPENTIN 400 MG CAP PO SCH (09:35)
[2020-03-03] MEDS: ASPIRIN 81 MG PO SCH (09:35)
[2020-03-03] MEDS: ISOSORBIDE MONONITRATE ER 30 MG TAB.ER.24H PO SCH (09:35)
[2020-03-03] MEDS: LORATADINE 10 MG TAB PO SCH (09:35)
[2020-03-03] MEDS: FENOFIBRATE 160 MG TAB PO SCH (09:35)
[2020-03-03] MEDS: METOPROLOL TARTRATE 25 MG TAB PO SCH (09:35)
[2020-03-03] MEDS: ASCORBIC ACID 500 MG TAB PO SCH (09:35)
[2020-03-03] MEDS: NYSTATIN 100,000 UNIT/ML SUSP 500,000 UNIT/5 ML CUP PO SCH ×2 (09:37→12:22)
[2020-03-03] MEDS: FUROSEMIDE 10 MG TAB PO SCH (09:37)
[2020-03-03] MEDS: ENOXAPARIN 40 MG/0.4 ML SYRINGE SQ SCH (09:37)
[2020-03-03] MEDS: FLUTICASONE 50MCG/SPRAY NASAL 16GM EA NOSTRIL SCH (09:38)
[2020-03-03] MEDS: THEOPHYLLINE 24 HOUR 200 MG CAP.ER.24H PO SCH (09:38)
--- NOTE | 2020-03-03 09:56 | P.PN ---
Subjective Progress Note Date: 03/03/20 69 year old male patient who was hospitalized on 02/27/2020 as a transfer from [facility] because of acute pneumonia attributed to coronavirus Covid 19 infection. The patient was complaining of shortness of breath and cough and congestion no nausea or vomiting or diarrhea. No reported fever or chills. The patient initially required fluids and also reports some pressors and she was started on a combination of steroids and Remdesivir. The patient was on high flow 02, Airvo, and the patient subsequently was weaned off and patient is currently on 15 L per minute nasal cannula and the pulses ox is on the order of 90%. The patient is also on Lovenox 40 mg subcu every 12 hours. The patient on Levemir insulin 38 units at bedtime and 35 units in the morning in addition to sinus. Coverage. Home medication. We will order. Chest x-ray from yesterday shows similar. Bilateral ground glass. There is also marked elevation of the right hemidiaphragm, likely due to component of diaphragmatic paralysis.the patient was subsequently placed back on high flow oxygen at 50 L with a FiO2 of 90% to bring up his saturation.he is feeling essentially the same as yesterday. He is still struggling with his breathing. He has a congested cough. on 03/03/2020, the patient is being seen for a follow-up. In terms of his pneumonia, the patient's oxygenation is essentially unchanged compared to yesterday. He is still on high flow oxygen at 60 L and FiO2 80% with a pulse ox and 89-90%, he is currently up in the chair, breathing comfortably, denies any acute distress, he is on IV fluids at that point and now per hour, his anion answering family's stable overnight. He had been treated and currently he is tolerating oral diet. No nausea vomiting or diarrhea, appetite is improving, major change in his condition compared to yesterday. No other significant issues for now. Objective - Vital Signs Vital signs: Vital Signs Temp 98 F 03/03/20 04:00 Pulse 92 03/03/20 04:00 Resp 18 03/03/20 04:00 BP 138/72 03/03/20 04:00 Pulse Ox 90 L 03/03/20 04:00 Intake & Output 03/02/20 03/03/20 03/03/20 18:59 06:59 18:59 Intake Total 330 1560 120 Output Total 1000 2350 600 Balance -670 -790 -480 Intake: Oral 330 1560 120 Output: Urine 1000 2350 600 Other: Voiding Method Indwelling Catheter Indwelling Catheter # Voids 0 # Bowel Movements 1 - Exam GENERAL EXAM: Alert, pleasant, 61-year-old white male, on 60 L/min with a pulse ox of 90% comfortable in no apparent distress. HEAD: Normocephalic/atraumatic. EYES: Normal reaction of pupils, equal size. Conjunctiva pink, sclera white. NOSE: Clear with pink turbinates. THROAT: No erythema or exudates. NECK: No masses, no JVD, no thyroid enlargement, no adenopathy. CHEST: No chest wall deformity. Symmetrical expansion. LUNGS: Equal air entry with no crackles, wheeze, rhonchi or dullness.diminished breath on the right lung bases the patient has chronic right hemidiaphragmatic paralysis. CVS: Regular rate and rhythm, normal S1 and S2, no gallops, no murmurs, no rubs ABDOMEN: Soft, nontender. No hepatosplenomegaly, normal bowel sounds, no guarding or rigidity. EXTREMITIES: No clubbing, no edema, no cyanosis, 2+ pulses and upper and lower extremities. MUSCULOSKELETAL: Muscle strength and tone normal. SPINE: No scoliosis or deformity SKIN: No rashes CENTRAL NERVOUS SYSTEM: Alert and oriented -3. No focal deficits, tone is normal in all 4 extremities. PSYCHIATRIC: Alert and oriented -3. Appropriate affect. Intact judgment and insight. - Labs CBC & Chem 7: 03/01/20 08:28 03/01/20 08:28 Labs: Abnormal Lab Results - Last 24 Hours (Table) 03/02/20 03/02/20 03/02/20 Range/Units 11:43 17:07 20:11 POC Glucose (mg/dL) 212 H 215 H 220 H (75-99) mg/dL Assessment and Plan Plan: #1. Acute COVID 19 pneumonitis/pneumonia with the moderate to severe hypoxemic respiratory failure, started on Remdesivir on 02/27/2020 and on steroidsmild currently on high flow oxygen at 60 L per minute.. No changes condition and his condition essentially unchanged compared to yesterday. #2. Chronic hypoxic respiratory failure related to history of COPD, maintained on 2.5 L of oxygen outpatient basis and the patient has chronic right hemidiaphragmatic paralysis. #3. Chronic CHF with diastolic dysfunction, moderate mitral regurgitation, and mild tricuspid regurgitation no evidence of pulmonary hypertension #4. Diabetes mellitus type 2 #5. Coronary artery disease, previous stenting and bypass surgery #6. History of deep vein thrombosis #7. History of hyperlipidemia #8. Previous history of myocardial infarction #9. Previous history of pneumonia #10. History of chronic bronchial asthma, unspecified #11. Elevated right hemidiaphragm with possibility of right diaphragmatic paralysis Plan completed Remdesivir, high-dose IV steroids, continue the vitamins and supplements, continue anticoagulation form of Lovenox 40 mg subcu every 12 hours, continue to monitor oxygenation pattern, dyspnea pattern, vital signs. Code status is DO NOT INTUBATE DO NOT RESUSCITATE, we'll continue supportive treatment. The patient is currently on O2 at 60 L. Continue Decadron. Repeat chest x-ray in the morning. Repeat inflammatory markers in the morning. Attempts to wean down the FiO2. Provide the patient incentive spirometer.
--- NOTE | 2020-03-03 11:19 | P.PN ---
Subjective Acute hypoxic respite failure secondary to COVID-19 pneumonia Patient is a 69-year-old male was admitted to hospital due to shortness of breath and hypoxia and also acute COVID-19 infection. Patient was started on remdesivir. ID and pulmonary is following. Patient was initially hypotensive and was given fluids and also was Levophed which was weaned off in the ER.. 02/29/2020 Patient is currently lying in the bed comfortably. Was started on remdesivir and high-dose steroids. Currently on vitamin supplementation as well. On airvo at 50 L and FiO2 90%. Laboratory data showed WBC 8.8, hemoglobin 12.9 and platelets 156 Sodium 136, potassium 4.1 BUN 39 creatinine 1.02 Procalcitonin level is 0.19 blood sugars in 200s. 03/01/2020 Patient is currently resting in bed comfortably. On high flow oxygen at 15 L and 90% FiO2. Chest x-ray showed similar diffuse bilateral groundglass infiltrate. Marked asymmetric elevation right hemidiaphragm. Consider underlying hemidiaphragmatic paralysis. However as patient is being continued on remdesivir and steroids and vitamin supplementation. Pulmonary and ID is on board. Patient presents Im proving slowly compared to yesterday. 03/02/2020 Patient still remains on the high amount of oxygen completed remdesivir patient is presently on 50 L of oxygen via airvo 03/03/2020 Still remains on 15 L of oxygen. No significant improvement or worsening of his clinical condition. Constitutional: Denied any fatigue denied any fever. Cardio vascular: denied any chest pain, palpitations Gastrointestinal denied any nausea vomiting Pulmonary: Denied any shortness of breath cough Neurologic denied any new focal deficits All inpatient medications were reviewed and appropriate changes in these me dications as dictated in the interval history and assessment and plan. Objective - Vital Signs Vital signs: Vital Signs Temp 98 F 03/03/20 04:00 Pulse 92 03/03/20 04:00 Resp 18 03/03/20 04:00 BP 138/72 03/03/20 04:00 Pulse Ox 83 L 03/03/20 11:04 Intake & Output 03/02/20 03/03/20 03/03/20 18:59 06:59 18:59 Intake Total 330 1560 120 Output Total 1000 2350 600 Balance -670 -790 -480 Intake: Oral 330 1560 120 Output: Urine 1000 2350 600 Other: Voiding Method Indwelling Catheter Indwelling Catheter # Voids 0 # Bowel Movements 1 - Exam PHYSICAL EXAMINATION: GENERAL: The patient is alert and oriented x3, not in any acute distress. Well developed, well nourished. HEENT: Pupils are round and equally reacting to light. EOMI. No scleral icterus. No conjunctival pallor. Normocephalic, atraumatic. No pharyngeal erythema. No thyromegaly. CARDIOVASCULAR: S1 and S2 present. No murmurs, rubs, or gallops. PULMONARY: Diffuse bilateral rhonchi ABDOMEN: Soft, nontender, nondistended, normoactive bowel sounds. No palpable organomegaly. MUSCULOSKELETAL: No joint swelling or deformity. EXTREMITIES: No cyanosis, clubbing, or pedal edema. NEUROLOGICAL: Gross neurological examination did not reveal any focal deficits. SKIN: No rashes. - Labs CBC & Chem 7: 03/01/20 08:28 03/01/20 08:28 Labs: Abnormal Lab Results - Last 24 Hours (Table) 03/02/20 03/02/20 03/02/20 Range/Units 11:43 17:07 20:11 POC Glucose (mg/dL) 212 H 215 H 220 H (75-99) mg/dL Assessment and Plan Plan: Acute COVID-19 infection with bilateral pneumonia and acute hypoxic respiratory failure present on admission completed remdesivir. Elevated inflammatory markers secondary to COVID-19 pneumonia Asthma stable History of CAD Chronic CHF with a diastolic dysfunction without any acute exacerbation at this time COPD and chronic hypoxic respiratory failure secondary to COPD Diabetes type 2 History of DVT Hypertension Hyperlipidemia Urinary artery disease History of PE Current CODE STATUS is DNR/DNI
[2020-03-03 12:10] LABS: Glucose,Whole Blood 75 mg/dL (75-99)
[2020-03-03 12:10] LABS: Glucose,Whole Blood 68 mg/dL (75-99)
[2020-03-03 13:36] VITALS: TEMP 97.6
[2020-03-03 13:38] VITALS: BP 141/76; PULSE 104; RESP 18
--- NOTE | 2020-03-03 15:38 | P.DS ---
Providers Date of admission: 02/27/20 10:39 Attending physician: Jasmine Parisi Consults: 02/27/20 10:38 Consult Physician Urgent Consulting Provider: Justo Zuleta Consult Reason/Comments: dyspnea, covid Do you want consulting provider notified?: Yes 02/27/20 15:00 Consult Physician Routine Consulting Provider: Raya Spring Consult Reason/Comments: covid- remdesivir? Do you want consulting provider notified?: Yes Primary care physician: Fredy Loomis Hospital Course: Please refer to my progress note for further details of hospital physician course. I was called by the nursing staff after patient . Was notified. Patient apparently was found in the room with a wall and patient subsequently became bradycardic and and a pericardial pulmonary arrest.. Patient at 1505, 03/03/2020. Patient Condition at Discharge: Serious Plan - Discharge Summary Discharge Rx Participant: Yes New Discharge Prescriptions: No Action Albuterol Sulfate [Proair Hfa] 2 puff INHALATION RT-Q6H PRN PRN Reason: Shortness Of Breath Ipratropium-Albuterol Nebulize [Duoneb 0.5 mg-3 mg/3 ml Soln] 3 ml INHALATION BID@0900,2100 HYDROcodone/APAP 10-325MG [Winthrop 10-325] 1 tab PO QID@05,13,18,22 INSULIN LISPRO (humaLOG) [humaLOG] 10 units SQ TID@0700,1100,1600 Fluticasone Nasal Bradley [Flonase Nasal Bradley] 1 sprays EA NOSTRIL DAILY@0900 Omeprazole [PriLOSEC] 20 mg PO BID@0600,2100 busPIRone HCL 30 mg PO BID@0900,1700 guaiFENesin [guaiFENesin Oral Solution] 200 mg PO Q4H PRN PRN Reason: Cough Acetaminophen Tab [Tylenol Tab] 500 mg PO DAILY PRN PRN Reason: Breakthrough Pain Nitroglycerin Sl Tabs [Nitrostat] 0.4 mg SUBLINGUAL Q5M PRN PRN Reason: Chest Pain Magnesium Hydroxide [Milk of Magnesia] 2,400 mg PO Q48H PRN PRN Reason: Constipation bisacodyL [Dulcolax] 10 mg PO Q48H PRN PRN Reason: Constipation bisacodyL [Bisacodyl] 10 mg RECTAL DAILY PRN PRN Reason: Constipation ALPRAZolam [Xanax] 0.25 mg PO TID@0600,1300,2100 Theophylline 24 Hour [Sukhdev-24] 200 mg PO BID@0900,2100 Gabapentin [Neurontin] 400 mg PO TID@0900,1300,2100 Ranolazine [Ranexa] 500 mg PO BID@0900,1700 metFORMIN HCL [Glucophage] 500 mg PO BID@0900,1700 Magnesium Oxide [Mag-Ox] 400 mg PO BID@0900,2100 Gemfibrozil [Lopid] 600 mg PO BID@0900,1700 Budesonide [Pulmicort] 0.5 mg INHALATION RT-BID@0600,1700 Allopurinol [Zyloprim] 300 mg PO BID@0900,1700 Zinc 50 mg PO DAILY@1300 Vitamin B Complex 1 cap PO DAILY@0900 tiZANidine [Zanaflex] 2 mg PO DAILY@0900 Cholecalciferol [Vitamin D3 (25 Mcg = 1000 Iu)] 5,000 unit PO DAILY@1300 Ascorbic Acid [Vitamin C] 500 mg PO DAILY@1300 Sennosides/Docusate Sodium [Senna Plus 8.6-50 mg Softgel] 1 cap PO HS@2100 Multivitamins, Thera [Multivitamin (formulary)] 1 tab PO DAILY@0900 Potassium Chloride ER [K-Dur 10] 10 meq PO DAILY@0900 Clopidogrel [Plavix] 75 mg PO HS@2100 PARoxetine HCL [Paxil] 30 mg PO HS@2100 Montelukast [Singulair] 10 mg PO DAILY@0900 Metoprolol Tartrate [Lopressor] 25 mg PO DAILY@0900 Loratadine 10 mg PO DAILY@0900 Isosorbide Mononitrate ER [Imdur] 30 mg PO DAILY@0900 lisinopriL [Zestril] 5 mg PO DAILY@0900 Insulin Detemir (Levemir) [Levemir] 38 units SQ HS@2100 Insulin Detemir (Levemir) [Levemir] 35 unit SQ DAILY@0700 Tamsulosin [Flomax] 0.4 mg PO DAILY@0900 Fluticasone/Vilanterol [Breo Ellipta 100-25 Mcg Inhaler] 1 puff INHALATION RT-DAILY@0900 Atorvastatin [Lipitor] 40 mg PO HS@2099 Aspirin 81 mg PO DAILY@0900 Furosemide [Lasix] 30 mg PO DAILY@0900 Discharge Medication List Albuterol Sulfate [Proair Hfa] 2 puff INHALATION RT-Q6H PRN 10/16/14 [History] HYDROcodone/APAP 10-325MG [Winthrop 10-325] 1 tab PO QID@05,13,18,22 10/16/14 [History] INSULIN LISPRO (humaLOG) [humaLOG] 10 units SQ TID@0700,1100,1600 10/16/14 [History] Ipratropium-Albuterol Nebulize [Duoneb 0.5 mg-3 mg/3 ml Soln] 3 ml INHALATION BID@0900,209910/16/14 [History] Fluticasone Nasal Bradley [Flonase Nasal Bradley] 1 sprays EA NOSTRIL DAILY@0902/16/15 [History] Omeprazole [PriLOSEC] 20 mg PO BID@0600,209902/16/15 [History] busPIRone HCL 30 mg PO BID@0900,1700 02/16/15 [History] ALPRAZolam [Xanax] 0.25 mg PO TID@0600,1300,209902/27/20 [History] Acetaminophen Tab [Tylenol Tab] 500 mg PO DAILY PRN 02/27/20 [History] Allopurinol [Zyloprim] 300 mg PO BID@0900,1700 02/27/20 [History] Ascorbic Acid [Vitamin C] 500 mg PO DAILY@1300 02/27/20 [History] Aspirin 81 mg PO DAILY@0902/27/20 [History] Atorvastatin [Lipitor] 40 mg PO HS@209902/27/20 [History] Budesonide [Pulmicort] 0.5 mg INHALATION RT-BID@0600,1700 02/27/20 [History] Cholecalciferol [Vitamin D3 (25 Mcg = 1000 Iu)] 5,000 unit PO DAILY@129902/27/20 [History] Clopidogrel [Plavix] 75 mg PO HS@209902/27/20 [History] Fluticasone/Vilanterol [Breo Ellipta 100-25 Mcg Inhaler] 1 puff INHALATION RT- DAILY@0900 02/27/20 [History] Furosemide [Lasix] 30 mg PO DAILY@89902/27/20 [History] Gabapentin [Neurontin] 400 mg PO TID@0900,1300,209902/27/20 [History] Gemfibrozil [Lopid] 600 mg PO BID@0900,1700 02/27/20 [History] Insulin Detemir (Levemir) [Levemir] 35 unit SQ DAILY@0702/27/20 [History] Insulin Detemir (Levemir) [Levemir] 38 units SQ HS@209902/27/20 [History] Isosorbide Mononitrate ER [Imdur] 30 mg PO DAILY@89902/27/20 [History] Loratadine 10 mg PO DAILY@89902/27/20 [History] Magnesium Hydroxide [Milk of Magnesia] 2,400 mg PO Q48H PRN 02/27/20 [History] Magnesium Oxide [Mag-Ox] 400 mg PO BID@899,209902/27/20 [History] Metoprolol Tartrate [Lopressor] 25 mg PO DAILY@89902/27/20 [History] Montelukast [Singulair] 10 mg PO DAILY@89902/27/20 [History] Multivitamins, Thera [Multivitamin (formulary)] 1 tab PO DAILY@89902/27/20 [History] Nitroglycerin Sl Tabs [Nitrostat] 0.4 mg SUBLINGUAL Q5M PRN 02/27/20 [History] PARoxetine HCL [Paxil] 30 mg PO HS@209902/27/20 [History] Potassium Chloride ER [K-Dur 10] 10 meq PO DAILY@89902/27/20 [History] Ranolazine [Ranexa] 500 mg PO BID@0900,1700 02/27/20 [History] Sennosides/Docusate Sodium [Senna Plus 8.6-50 mg Softgel] 1 cap PO HS@209902/27/20 [History] Tamsulosin [Flomax] 0.4 mg PO DAILY@89902/27/20 [History] Theophylline 24 Hour [Sukhdev-24] 200 mg PO BID@0900,209902/27/20 [History] Vitamin B Complex 1 cap PO DAILY@00 02/27/20 [History] Zinc 50 mg PO DAILY@1300 02/27/20 [History] bisacodyL [Bisacodyl] 10 mg RECTAL DAILY PRN 02/27/20 [History] bisacodyL [Dulcolax] 10 mg PO Q48H PRN 02/27/20 [History] guaiFENesin [guaiFENesin Oral Solution] 200 mg PO Q4H PRN 02/27/20 [History] lisinopriL [Zestril] 5 mg PO DAILY@0900 02/27/20 [History] metFORMIN HCL [Glucophage] 500 mg PO BID@0900,1700 02/27/20 [History] tiZANidine [Zanaflex] 2 mg PO DAILY@0900 02/27/20 [History] Follow up Appointment(s)/Referral(s): Fredy Loomis MD [Primary Care Provider] - 1-2 days - Preliminary Cause of Preliminary Cause of : Covid 19
== END 2020-03-03 18:12 | disposition expired | DRG 177 ==
LOC: EC 10:08 → 3SCARD 10:39
PROVIDERS: ADMIT Hospitalist; ATTEND Hospitalist
PROC: XW043E5 Introduction of Remdesivir Anti-infective into Central Vein, Percutaneous Approach, New Technology Group 5 (ICD-10-PCS; principal; 2020-02-27)
DX: U07.1 COVID-19 (principal); J12.89 Other viral pneumonia; J96.21 Acute and chronic respiratory failure with hypoxia; I50.32 Chronic diastolic (congestive) heart failure; J44.0 Chronic obstructive pulmonary disease with (acute) lower respiratory infection; D69.6 Thrombocytopenia, unspecified; J98.6 Disorders of diaphragm; I11.0 Hypertensive heart disease with heart failure; Z99.81 Dependence on supplemental oxygen; E11.9 Type 2 diabetes mellitus without complications; Z79.4 Long term (current) use of insulin; I46.9 Cardiac arrest, cause unspecified; Z66 Do not resuscitate; R00.1 Bradycardia, unspecified; D64.9 Anemia, unspecified; E66.9 Obesity, unspecified; E78.5 Hyperlipidemia, unspecified; E86.0 Dehydration; I25.10 Atherosclerotic heart disease of native coronary artery without angina pectoris; I25.2 Old myocardial infarction; R19.7 Diarrhea, unspecified; I08.0 Rheumatic disorders of both mitral and aortic valves; H91.90 Unspecified hearing loss, unspecified ear; Z68.30 Body mass index [BMI] 30.0-30.9, adult; Z79.82 Long term (current) use of aspirin; Z79.899 Other long term (current) drug therapy; Z86.711 Personal history of pulmonary embolism; Z86.718 Personal history of other venous thrombosis and embolism; Z87.01 Personal history of pneumonia (recurrent); Z90.49 Acquired absence of other specified parts of digestive tract; Z95.1 Presence of aortocoronary bypass graft; Z95.5 Presence of coronary angioplasty implant and graft; Z88.0 Allergy status to penicillin; Z88.2 Allergy status to sulfonamides; Z88.8 Allergy status to other drugs, medicaments and biological substances; Z88.1 Allergy status to other antibiotic agents; Z91.041 Radiographic dye allergy status; Z90.89 Acquired absence of other organs; Z87.19 Personal history of other diseases of the digestive system; Z87.898 Personal history of other specified conditions; Z82.49 Family history of ischemic heart disease and other diseases of the circulatory system; Z82.5 Family history of asthma and other chronic lower respiratory diseases
CPT/HCPCS: 71045; 71046; 71250; 80048; 80053; 83605; 83615; 83880; 84145; 85025; 85379; 86140; 87449; 93005; 94640; 96365; 96366; 96367; 96372; 99214; 99285